=== PATIENT | female | born 1980 | race Caucasian/White ===

== ENCOUNTER 2017-05-02 01:25 | Emergency (ER) | payer BC ==
[2017-05-02 01:35] VITALS: BP 151/85
[2017-05-02] MEDS ORDERED: Ketorolac 60 MG/2 ML SDV IM ONE (02:19)
--- NOTE | 2017-05-02 02:21 | EDM.PDOC ---
ED HPI GENERAL MEDICAL PROBLEM - General Chief Complaint: Flank Pain Stated Complaint: BACK PAIN Time Seen by Provider: 05/02/17 02:17 - History of Present Illness INITIAL COMMENTS - FREE TEXT/NARRATIVE: HISTORY AND PHYSICAL: History of present illness: Patient 36-year-old female presents with concern of low back pain states this is bilateral G concern for possible urinary tract infection is been no numbness no weakness denies incontinence or retention of bowel or bladder no vaginal discharge or irregular bleeding or other concern Review of systems: As per history of present illness and below otherwise all systems reviewed and negative. Past medical history: As per history of present illness and as reviewed below otherwise noncontributory. Surgical history: As per history of present illness and as reviewed below otherwise noncontributory. Social history: No reported history of drug or alcohol abuse. Family history: As per history of present illness and as reviewed below otherwise noncontributory. Physical exam: HEENT: Atraumatic, normocephalic, pupils reactive, negative for conjunctival pallor or scleral icterus, mucous membranes moist, throat clear, neck supple, nontender, trachea midline. Lungs: Clear to auscultation, breath sounds equal bilaterally, chest nontender. Heart: S1S2, regular, negative for clicks, rubs, or JVD. Abdomen: Soft, nondistended, nontender. Negative for masses or hepatosplenomegaly. Negative for costovertebral tenderness. Pelvis: Stable nontender. Genitourinary: Deferred. Rectal: Deferred. Extremities: Atraumatic, negative for cords or calf pain. Neurovascular unremarkable. Neuro: Awake, alert, oriented. Cranial nerves II through XII unremarkable. Cerebellum unremarkable. Motor and sensory unremarkable throughout. Exam nonfocal. Back: Patient is some mild paravertebral tenderness at the lumbar spine no vertebral body tenderness patient is able [place] toes back reveals deep tendon reflexes are normal Diagnostics: [facility] Therapeutics: Toradol 60 mg IM Impression: #1 low back pain Definitive disposition and diagnosis as appropriate pending reevaluation and review of above. Bilateral Flank Pain Score (Numeric/FACES): 5 - Related Data Allergies Allergy/AdvReac Type Severity Reaction Status Date / Time No Known Allergies Allergy Verified 01/10/16 07:42 Home Meds: Home Meds l-Norgest/E.estradion-E.estrad [Seasonique 0.15-0.03-0.01] 1 each PO DAILY 03/29 [History] lamoTRIgine [LaMICtal] 400 mg PO DAILY 03/29/14 [History] Escitalopram [Lexapro] 20 mg PO DAILY 05/02/17 [History] atoMOXetine HCl [Strattera] 60 mg PO DAILY 05/02/17 [History] cloNIDine [Catapres] 0.1 mg PO DAILY 05/02/17 [History] Past Medical History - Past Health History Medical/Surgical History: Denies Medical/Surgical History HEENT History: Reports: Impaired Vision Cardiovascular History: Reports: None Respiratory History: Reports: None Genitourinary History: Reports: Renal Calculus, Other (See Below) Other Genitourinary History: kidney infections 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 Musculoskeletal History: Reports: None Neurological History: Reports: Headaches, Chronic Psychiatric History: Reports: Anxiety, Bipolar Endocrine/Metabolic History: Reports: None Hematologic History: Reports: None Immunologic History: Reports: None Dermatologic History: Reports: None - Infectious Disease History Infectious Disease History: Reports: Chicken Pox - Past Surgical History HEENT Surgical History: Reports: Eye Surgery, Other (See Below) Other HEENT Surgeries/Procedures: surgery for lazy eye as a baby Female Surgical History: Reports: Lithotripsy/ESWL Social & Family History - Family History Family Medical History: Noncontributory - Tobacco Use Smoking Status *Q: Never Smoker Years of Tobacco use: 1 Packs/Tins Daily: 0.5 Used Tobacco, but Quit: No Month Tobacco Last Used: January Second Hand Smoke Exposure: No - Caffeine Use Caffeine Use: Reports: Coffee - Alcohol Use Days Per Week of Alcohol Use: 0 - Recreational Drug Use Recreational Drug Use: No ED ROS GENERAL - Review of Systems Review Of Systems: ROS reveals no pertinent complaints other than HPI. ED EXAM, GENERAL - Physical Exam Exam: See Below (See dictation) Course - Vital Signs Last Recorded V/S: Last Vital Signs Temp 36.3 C 05/02/17 01:25 Pulse 88 05/02/17 01:25 Resp 16 05/02/17 01:25 BP 151/85 H 05/02/17 01:25 Pulse Ox 100 05/02/17 01:25 - Orders/Labs/Meds Labs: Laboratory Tests 05/02/17 05/02/17 Range/Units 01:35 01:35 Urine Color YELLOW Urine Appearance CLEAR Urine pH 6.5 (5.0-8.0) Ur Specific [place] 1.010 (1.001-1.035) Urine Protein NEGATIVE (NEGATIVE) mg/dL Urine Glucose (UA) NEGATIVE (NEGATIVE) mg/dL Urine Ketones NEGATIVE (NEGATIVE) mg/dL Urine Occult Blood NEGATIVE (NEGATIVE) Urine Nitrite NEGATIVE (NEGATIVE) Urine Bilirubin NEGATIVE (NEGATIVE) Urine Urobilinogen 0.2 (<2.0) EU/dL Ur Leukocyte Esterase NEGATIVE (NEGATIVE) Urine RBC 0-1 (0-2/HPF) Urine WBC 0-1 (0-5/HPF) Ur Epithelial Cells OCCASIONAL (NONE-FEW) Urine Bacteria RARE (NEGATIVE) Urine HCG, Qual NEGATIVE (NEGATIVE) Departure - Departure Time of Disposition: 02:20 Disposition: Home, Self-Care 01 Condition: Good Clinical Impression: Back pain - Discharge Information Referrals: Isha Zacarias SHE[employer] IR[employer]WORK[employer] [Primary Care Provider] - Additional Instructions: The following information is given to patients seen in the emergency department who are being discharged to home. This information is to outline your options for follow-up care. We provide all patients seen in our emergency department with a follow-up referral. The need for follow-up, as well as the timing and circumstances, are variable depending upon the specifics of your emergency department visit. If you don't have a primary care physician on staff, we will provide you with a referral. We always advise you to contact your personal physician following an emergency department visit to inform them of the circumstance of the visit and for follow-up with them and/or the need for any referrals to a consulting specialist. The emergency department will also refer you to a specialist when appropriate. This referral assures that you have the opportunity for followup care with a specialist. All of these measure are taken in an effort to provide you with optimal care, which includes your followup. Under all circumstances we always encourage you to contact your private physician who remains a resource for coordinating your care. When calling for followup care, please make the office aware that this follow-up is from your recent emergency room visit. If for any reason you are refused follow-up, please contact the [facility] emergency department at and asked to speak to the emergency department charge nurse. Motrin/Tylenol as directed follow-up primary medical doctor 1-2 days return as needed as discussed
== END 2017-05-02 03:00 | disposition home or self-care (01) ==
LOC: MW.ED 01:25
DX: M54.5 Low back pain (principal); F31.9 Bipolar disorder, unspecified; Z87.442 Personal history of urinary calculi; Z79.899 Other long term (current) drug therapy; Z98.890 Other specified postprocedural states
CPT/HCPCS: 81001; 81025; 96372; 99284; J1885; 99283

== ENCOUNTER 2018-01-01 09:31 | Emergency (ER) | payer BC ==
--- NOTE | 2018-01-01 10:03 | EDM.PDOC ---
ED HPI GENERAL MEDICAL PROBLEM - General Chief Complaint: Genitourinary Problem Stated Complaint: BACK PAIN AND BLOOD IN URINE Time Seen by Provider: 01/01/18 09:59 - History of Present Illness INITIAL COMMENTS - FREE TEXT/NARRATIVE: HISTORY AND PHYSICAL: History of present illness: Patient is a 37-year-old white female who presents with concern of hematuria and low back pain she denies fever chills nausea vomiting trauma or other concern. Review of systems: As per history of present illness and below otherwise all systems reviewed and negative. Past medical history: As per history of present illness and as reviewed below otherwise noncontributory. Surgical history: As per history of present illness and as reviewed below otherwise noncontributory. Social history: No reported history of drug or alcohol abuse. Family history: As per history of present illness and as reviewed below otherwise noncontributory. Physical exam: HEENT: Atraumatic, normocephalic, pupils reactive, negative for conjunctival pallor or scleral icterus, mucous membranes moist, throat clear, neck supple, nontender, trachea midline. Lungs: Clear to auscultation, breath sounds equal bilaterally, chest nontender. Heart: S1S2, regular, negative for clicks, rubs, or JVD. Abdomen: Soft, nondistended, nontender. Negative for masses or hepatosplenomegaly. Negative for costovertebral tenderness. Pelvis: Stable nontender. Genitourinary: Deferred. Rectal: Deferred. Extremities: Atraumatic, negative for cords or calf pain. Neurovascular unremarkable. Neuro: Awake, alert, oriented. Cranial nerves II through XII unremarkable. Cerebellum unremarkable. Motor and sensory unremarkable throughout. Exam nonfocal. Back: Patient has no vertebral body or point tenderness patient able stand on her toes back on her heels deep tendon reflexes are normal Diagnostics: UA urine culture and sensitivity and hCG Therapeutics: None Impression: #1 history of hematuria rule out UTI #2 low back Definitive disposition and diagnosis as appropriate pending reevaluation and review of above. Right Flank Pain Score (Numeric/FACES): 4 - Related Data Allergies Allergy/AdvReac Type Severity Reaction Status Date / Time No Known Allergies Allergy Verified 01/01/18 09:43 Home Meds: Home Meds l-Norgest/E.estradion-E.estrad [Seasonique 0.15-0.03-0.01] 1 each PO DAILY 03/29 [History] lamoTRIgine [LaMICtal] 400 mg PO DAILY 03/29/14 [History] Escitalopram [Lexapro] 20 mg PO DAILY 05/02/17 [History] atoMOXetine HCl [Strattera] 60 mg PO DAILY 05/02/17 [History] cloNIDine [Catapres] 0.1 mg PO DAILY 05/02/17 [History] Past Medical History - Past Health History Medical/Surgical History: Denies Medical/Surgical History HEENT History: Reports: Impaired Vision Cardiovascular History: Reports: None Respiratory History: Reports: None Genitourinary History: Reports: Renal Calculus, Other (See Below) Other Genitourinary History: kidney infections 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 Musculoskeletal History: Reports: None Neurological History: Reports: Headaches, Chronic Psychiatric History: Reports: Anxiety, Bipolar Endocrine/Metabolic History: Reports: None Hematologic History: Reports: None Immunologic History: Reports: None Dermatologic History: Reports: None - Infectious Disease History Infectious Disease History: Reports: Chicken Pox - Past Surgical History HEENT Surgical History: Reports: Eye Surgery, Other (See Below) Other HEENT Surgeries/Procedures: surgery for lazy eye as a baby GI Surgical History: Reports: Other (See Below) Female Surgical History: Reports: Lithotripsy/ESWL Social & Family History - Family History Family Medical History: Noncontributory - Tobacco Use Smoking Status *Q: Never Smoker Second Hand Smoke Exposure: No - Caffeine Use Caffeine Use: Reports: Coffee - Recreational Drug Use Recreational Drug Use: No ED ROS GENERAL - Review of Systems Review Of Systems: ROS reveals no pertinent complaints other than HPI. ED EXAM, GENERAL - Physical Exam Exam: See Below (See dictation) Course - Vital Signs Last Recorded V/S: Last Vital Signs Temp 36.4 C 01/01/18 09:43 Pulse 86 01/01/18 09:43 Resp 18 01/01/18 09:43 BP 144/76 H 01/01/18 09:43 Pulse Ox 99 01/01/18 09:43 - Orders/Labs/Meds Orders: Active Orders 24 hr Category Date Time Status CULTURE URINE [RM] Stat Lab 01/01/18 10:05 Received HCG QUALITATIVE,URINE [URCHEM] Stat Lab 01/01/18 10:05 Ordered UA W/MICROSCOPIC [URIN] Stat Lab 01/01/18 10:05 Ordered Labs: Laboratory Tests 01/01/18 01/01/18 Range/Units 10:05 10:05 Urine Color YELLOW Urine Appearance CLEAR Urine pH 6.5 (5.0-8.0) Ur Specific [place] 1.020 (1.001-1.035) Urine Protein NEGATIVE (NEGATIVE) mg/dL Urine Glucose (UA) NEGATIVE (NEGATIVE) mg/dL Urine Ketones NEGATIVE (NEGATIVE) mg/dL Urine Occult Blood NEGATIVE (NEGATIVE) Urine Nitrite NEGATIVE (NEGATIVE) Urine Bilirubin NEGATIVE (NEGATIVE) Urine Urobilinogen 0.2 (<2.0) EU/dL Ur Leukocyte Esterase NEGATIVE (NEGATIVE) Urine RBC NONE SEEN (0-2/HPF) Urine WBC 0-2 (0-5/HPF) Ur Epithelial Cells RARE (NONE-FEW) Amorphous Sediment NOT SEEN (NEGATIVE) Urine Bacteria NOT SEEN (NEGATIVE) Urine Mucus NOT SEEN (NONE-MOD) Urine HCG, Qual NEGATIVE (NEGATIVE) Departure - Departure Time of Disposition: 10:53 Disposition: Home, Self-Care 01 Condition: Good Clinical Impression: Encounter for medical screening examination - Discharge Information Referrals: PCP,None [Primary Care Provider] - Forms: ED Department Discharge Additional Instructions: The following information is given to patients seen in the emergency department who are being discharged to home. This information is to outline your options for follow-up care. We provide all patients seen in our emergency department with a follow-up referral. The need for follow-up, as well as the timing and circumstances, are variable depending upon the specifics of your emergency department visit. If you don't have a primary care physician on staff, we will provide you with a referral. We always advise you to contact your personal physician following an emergency department visit to inform them of the circumstance of the visit and for follow-up with them and/or the need for any referrals to a consulting specialist. The emergency department will also refer you to a specialist when appropriate. This referral assures that you have the opportunity for followup care with a specialist. All of these measure are taken in an effort to provide you with optimal care, which includes your followup. Under all circumstances we always encourage you to contact your private physician who remains a resource for coordinating your care. When calling for followup care, please make the office aware that this follow-up is from your recent emergency room visit. If for any reason you are refused follow-up, please contact the [facility] emergency department at and asked to speak to the emergency department charge nurse. Follow-up primary medical doctor call to schedule routine appointment return as needed as discussed - My Orders Last 24 Hours: My Active Orders 01/01/18 10:05 CULTURE URINE [RM] Stat HCG QUALITATIVE,URINE [URCHEM] Stat UA W/MICROSCOPIC [URIN] Stat - Assessment/Plan Last 24 Hours: My Active Orders 01/01/18 10:05 CULTURE URINE [RM] Stat HCG QUALITATIVE,URINE [URCHEM] Stat UA W/MICROSCOPIC [URIN] Stat
[2018-01-01 11:12] VITALS: BP 147/76
== END 2018-01-01 11:06 | disposition home or self-care (01) ==
LOC: MW.ED 09:31
DX: M54.5 Low back pain (principal); Z79.899 Other long term (current) drug therapy
CPT/HCPCS: 81001; 81025; 87086; 99282; 99283

== ENCOUNTER 2019-09-27 09:15 | Inpatient (IN) | payer BC ==
--- NOTE | 2019-09-27 09:49 | EDM.PDOC ---
ED HPI GENERAL MEDICAL PROBLEM - General Chief Complaint: Behavioral/Psych Stated Complaint: EMS/AMB Time Seen by Provider: 09/27/19 09:41 Source of Information: Reports: Patient - History of Present Illness INITIAL COMMENTS - FREE TEXT/NARRATIVE: She states that last night after an argument with her father, she took "a lot of pills". Pills ingested included clonidine, Xanax, and Lamictal. She is vague about quantities and simply says that she took a handful of what ever she could find. She complains of feeling lightheaded if she stands. She denies chest pain, shortness of breath or seizure-like activity. She said when she took the pill she definitely wanted to because she was tired of suffering. Additionally, she was brought here by police, who showed me a note the patient wrote. In this note, she gives away various possessions. He also says her goodbyes to people who apparently are important to her. She says she no longer feels quite like she did last night and does not really want to . She denies having tried to kill herself in the past. She states that she lives alone. Headache Pain Score (Numeric/FACES): 0 - Related Data Allergies Allergy/AdvReac Type Severity Reaction Status Date / Time No Known Allergies Allergy Verified 09/27/19 09:56 Home Meds: Home Meds l-Norgest/E.estradion-E.estrad [Seasonique 0.15-0.03-0.01] 1 each PO DAILY 03/29 [History] lamoTRIgine [LaMICtal] 200 mg PO BID 03/29/14 [History] Escitalopram [Lexapro] 20 mg PO DAILY 05/02/17 [History] atoMOXetine HCl [Strattera] 60 mg PO DAILY 05/02/17 [History] cloNIDine [Catapres] 0.1 mg PO DAILY 05/02/17 [History] Venlafaxine HCl [Venlafaxine HCl ER] 75 mg PO ASDIRECTED 09/27/19 [History] atoMOXetine HCl [Atomoxetine HCl] 60 mg PO ASDIRECTED 09/27/19 [History] atoMOXetine HCl [Strattera] 80 mg PO DAILY 09/27/19 [History] hydrOXYzine HCL [Atarax] 25 mg PO DAILY 09/27/19 [History] metroNIDAZOLE [Metronidazole] 500 mg PO ASDIRECTED 09/27/19 [History] Past Medical History - Past Health History Medical/Surgical History: Denies Medical/Surgical History HEENT History: Reports: Impaired Vision Cardiovascular History: Reports: None Respiratory History: Reports: None Genitourinary History: Reports: Renal Calculus, Other (See Below) Other Genitourinary History: kidney infections 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[employer]ER History: Reports: 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 Musculoskeletal History: Reports: None Neurological History: Reports: Headaches, Chronic Psychiatric History: Reports: Anxiety, Bipolar Endocrine/Metabolic History: Reports: None Hematologic History: Reports: None Immunologic History: Reports: None Dermatologic History: Reports: None - Infectious Disease History Infectious Disease History: Reports: Chicken Pox - Past Surgical History HEENT Surgical History: Reports: Eye Surgery, Other (See Below) Other HEENT Surgeries/Procedures: surgery for lazy eye as a baby GI Surgical History: Reports: Other (See Below) Female Surgical History: Reports: Lithotripsy/ESWL Social & Family History - Family History Family Medical History: Noncontributory - Caffeine Use Caffeine Use: Reports: Coffee ED ROS GENERAL - Review of Systems Review Of Systems: See Below Constitutional: Denies: Fever, Diaphoresis HEENT: Denies: Eye Pain Respiratory: Denies: Shortness of Breath, Wheezing, Cough Cardiovascular: Denies: Chest Pain, Edema GI/Abdominal: Denies: Abdominal Pain, Nausea, Vomiting Musculoskeletal: Denies: Muscle Pain Skin: Denies: Jaundice, Mottled Neurological: Reports: Dizziness Psychiatric: Reports: Suicidal Ideation. Denies: Hallucinations - Physical Exam Exam: See Below Text/Narrative:: General: alert, well appearing, no acute distress HEENT: Atraumatic, normocephalic, pupils reactive, negative for conjunctival pallor or scleral icterus, mucous membranes moist, throat clear, handling oral secretions well. Neck: supple, nontender, trachea midline. Lungs: Clear to auscultation, breath sounds equal bilaterally, chest nontender. Heart: S1S2, regular, negative for clicks, rubs, or JVD. His bradycardia at about 45 to 50 bpm on the monitor during exam. Brisk capillary refill. Abdomen: Soft, nondistended, nontender. Negative for masses or hepatosplenomegaly. Negative for costovertebral tenderness. Pelvis: Stable nontender. Skin: warm, dry, good turgor. Musculoskeletal: soft compartments. No edema. Extremities: Atraumatic, negative for cords or calf pain. Neurovascular unremarkable. Neuro: Awake, alert, oriented. Cranial nerves II through XII unremarkable. Cerebellum unremarkable. Motor and sensory unremarkable throughout. Exam nonfocal. Psychiatric: Tearful affect. Eye contact ranges from good to fair. Does not appear to be hallucinating. Normal rate, rhythm, volume, content of speech. EKG INTERPRETATION EKG Interpretation Comments: EK bpm normal sinus rhythm left axis deviation normal OH, QRS, QTc intervals; left anterior fascicular block present Course - Vital Signs Text/Narrative:: Labs BC: Mild leukocytosis (white count 11.53), there was unremarkable Chemistry: CMP unremarkable apart from glucose a little elevated at 122 Magnesium: 2.5 (elevated) AST and ALT: Unremarkable Urinalysis: Urinalysis: Negative Urine tox: Positive for benzodiazepines, cocaine, marijuana EtOH: Negative cxr: no pulm edema, no acute infiltrates 10:02am Poison control contacted. They would like for us to give Atropine; add on Mg, naloxone, AST, ALT, INR, 11:16am Poison control advised that clonidine can act for up to 24 hrs. May need repeat doses of atropine and naloxone. Hospitalist paged. Pt's HR now in the 70s; SBP has been 140s-170s since administration of meds. Pt alert with nl mentation. I cannot medically clear her for psych admit for almost 12 more hours. 12:05pm d/w Dr. Almonte. Accepts pt for admit to tele obs. Last Recorded V/S: Last Vital Signs Temp 97.9 F 09/27/19 16:00 Pulse 82 09/27/19 11:13 Resp 20 09/27/19 19:00 BP 182/95 H 09/27/19 19:00 Pulse Ox 97 09/27/19 19:00 - Orders/Labs/Meds Orders: Active Orders 24 hr Category Date Time Status Admission Status [Patient Status] [ADT] Stat ADT 09/27/19 12:12 Active Medication Orders Albuterol/Ipratropium (Duoneb 3.0-0.5 Mg/3 Ml) 3 ml NEB Q4HRRT PRN PRN Reason: Shortness Of Breath/wheezing Atropine Sulfate (Atropine 1 Mg/Ml) 0.5 mg IVPUSH ONETIME PRN PRN Reason: Bradycardia Lactated Ringer's (Ringers, Lactated) 1,000 mls @ 200 mls/hr IV ASDIRECTED LYLE Last Admin: 09/27/19 20:04 Dose: 200 mls/hr Infusion: 09/27/19 20:04 Dose: 200 mls/hr Admin: 09/27/19 15:25 Dose: 200 mls/hr Sodium Chloride ([place] Nasal [place]) 1 ml TENISHA Q2H PRN PRN Reason: Dryness Labs: Laboratory Tests 09/27/19 09/27/19 09/27/19 Range/Units 09:30 09:30 09:30 WBC (4.0-11.0) K/uL RBC (4.30-5.90) M/uL Hgb (12.0-16.0) g/dL Hct (36.0-46.0) % MCV (80.0-98.0) fL MCH (27.0-32.0) pg MCHC (31.0-37.0) g/dL RDW Std Deviation (28.0-62.0) fl RDW Coeff of Eros (11.0-15.0) % Plt Count (150-400) K/uL MPV (7.40-12.00) fL Neut % (Auto) (48.0-80.0) % Lymph % (Auto) (16.0-40.0) % [place]once % (Auto) (0.0-15.0) % Eos % (Auto) (0.0-7.0) % Baso % (Auto) (0.0-1.5) % Neut # (Auto) (1.4-5.7) K/uL Lymph # (Auto) (0.6-2.4) K/uL Ponce # (Auto) (0.0-0.8) K/uL Eos # (Auto) (0.0-0.7) K/uL Baso # (Auto) (0.0-0.1) K/uL Nucleated RBC % /100WBC Nucleated RBCs # K/uL Sodium 142 (136-145) mmol/L Potassium 4.3 (3.5-5.1) mmol/L Chloride 104 (98-107) mmol/L Carbon Dioxide 23.2 (21.0-32.0) mmol/L BUN 18 (7.0-18.0) mg/dL Creatinine 1.0 (0.6-1.0) mg/dL Est Cr Clr Drug Dosing TNP Estimated GFR (MDRD) > 60.0 ml/min Glucose 122 H (74-106) mg/dL Calcium 9.5 (8.5-10.1) mg/dL Magnesium (1.8-2.4) mg/dL Total Bilirubin 0.9 (0.2-1.0) mg/dL AST 18 (15-37) IU/L ALT 25 (14-63) IU/L Alkaline Phosphatase 94 (46-116) U/L Total Protein 8.3 H (6.4-8.2) g/dL Albumin 4.3 (3.4-5.0) g/dL Globulin 4.0 (2.6-4.0) g/dL Albumin/Globulin Ratio 1.1 (0.9-1.6) TSH 3rd Generation (0.36-3.74) uIU/mL Urine Color YELLOW Urine Appearance CLEAR Urine pH 6.0 (5.0-8.0) Ur Specific [place] 1.025 (1.001-1.035) Urine Protein NEGATIVE (NEGATIVE) mg/dL Urine Glucose (UA) NEGATIVE (NEGATIVE) mg/dL Urine Ketones NEGATIVE (NEGATIVE) mg/dL Urine Occult Blood NEGATIVE (NEGATIVE) Urine Nitrite NEGATIVE (NEGATIVE) Urine Bilirubin NEGATIVE (NEGATIVE) Urine Urobilinogen 0.2 (<2.0) EU/dL Ur Leukocyte Esterase NEGATIVE (NEGATIVE) Urine HCG, Qual NEGATIVE (NEGATIVE) Salicylates 0.4 (0-20) mg/dL Urine Opiates Screen (NEGATIVE) Ur Oxycodone Screen (NEGATIVE) Urine Methadone Screen (NEGATIVE) Acetaminophen <2.0 ug/mL Ur Barbiturates Screen (NEGATIVE) Ur Phencyclidine Scrn (NEGATIVE) Ur Amphetamine Screen (NEGATIVE) U Methamphetamines Scrn (NEGATIVE) U Benzodiazepines Scrn (NEGATIVE) U Cocaine Metab Screen (NEGATIVE) U Marijuana (THC) Screen (NEGATIVE) Ethyl Alcohol <3 mg/dL 09/27/19 09/27/19 09/27/19 Range/Units 09:30 09:30 09:30 WBC 11.53 H (4.0-11.0) K/uL RBC 5.27 (4.30-5.90) M/uL Hgb 15.7 (12.0-16.0) g/dL Hct 45.7 (36.0-46.0) % MCV 86.7 (80.0-98.0) fL MCH 29.8 (27.0-32.0) pg MCHC 34.4 (31.0-37.0) g/dL RDW Std Deviation 41.8 (28.0-62.0) fl RDW Coeff of Eros 13 (11.0-15.0) % Plt Count 368 (150-400) K/uL MPV 9.90 (7.40-12.00) fL Neut % (Auto) 65.7 (48.0-80.0) % Lymph % (Auto) 21.0 (16.0-40.0) % Ponce % (Auto) 10.1 (0.0-15.0) % Eos % (Auto) 2.6 (0.0-7.0) % Baso % (Auto) 0.6 (0.0-1.5) % Neut # (Auto) 7.6 H (1.4-5.7) K/uL Lymph # (Auto) 2.4 (0.6-2.4) K/uL Ponce # (Auto) 1.2 H (0.0-0.8) K/uL Eos # (Auto) 0.3 (0.0-0.7) K/uL Baso # (Auto) 0.1 (0.0-0.1) K/uL Nucleated RBC % 0.0 /100WBC Nucleated RBCs # 0 K/uL Sodium (136-145) mmol/L Potassium (3.5-5.1) mmol/L Chloride (98-107) mmol/L Carbon Dioxide (21.0-32.0) mmol/L BUN (7.0-18.0) mg/dL Creatinine (0.6-1.0) mg/dL Est Cr Clr Drug Dosing Estimated GFR (MDRD) ml/min Glucose (74-106) mg/dL Calcium (8.5-10.1) mg/dL Magnesium 2.5 H (1.8-2.4) mg/dL Total Bilirubin (0.2-1.0) mg/dL AST (15-37) IU/L ALT (14-63) IU/L Alkaline Phosphatase (46-116) U/L Total Protein (6.4-8.2) g/dL Albumin (3.4-5.0) g/dL Globulin (2.6-4.0) g/dL Albumin/Globulin Ratio (0.9-1.6) TSH 3rd Generation (0.36-3.74) uIU/mL Urine Color Urine Appearance Urine pH (5.0-8.0) Ur Specific [place] (1.001-1.035) Urine Protein (NEGATIVE) mg/dL Urine Glucose (UA) (NEGATIVE) mg/dL Urine Ketones (NEGATIVE) mg/dL Urine Occult Blood (NEGATIVE) Urine Nitrite (NEGATIVE) Urine Bilirubin (NEGATIVE) Urine Urobilinogen (<2.0) EU/dL Ur Leukocyte Esterase (NEGATIVE) Urine HCG, Qual (NEGATIVE) Salicylates (0-20) mg/dL Urine Opiates Screen NEGATIVE (NEGATIVE) Ur Oxycodone Screen NEGATIVE (NEGATIVE) Urine Methadone Screen NEGATIVE (NEGATIVE) Acetaminophen ug/mL Ur Barbiturates Screen NEGATIVE (NEGATIVE) Ur Phencyclidine Scrn NEGATIVE (NEGATIVE) Ur Amphetamine Screen NEGATIVE (NEGATIVE) U Methamphetamines Scrn NEGATIVE (NEGATIVE) U Benzodiazepines Scrn POSITIVE (NEGATIVE) U Cocaine Metab Screen POSITIVE (NEGATIVE) U Marijuana (THC) Screen POSITIVE (NEGATIVE) Ethyl Alcohol mg/dL 09/27/19 09/27/19 Range/Units 09:30 09:30 WBC (4.0-11.0) K/uL RBC (4.30-5.90) M/uL Hgb (12.0-16.0) g/dL Hct (36.0-46.0) % MCV (80.0-98.0) fL MCH (27.0-32.0) pg MCHC (31.0-37.0) g/dL RDW Std Deviation (28.0-62.0) fl RDW Coeff of Eros (11.0-15.0) % Plt Count (150-400) K/uL MPV (7.40-12.00) fL Neut % (Auto) (48.0-80.0) % Lymph % (Auto) (16.0-40.0) % Ponce % (Auto) (0.0-15.0) % Eos % (Auto) (0.0-7.0) % Baso % (Auto) (0.0-1.5) % Neut # (Auto) (1.4-5.7) K/uL Lymph # (Auto) (0.6-2.4) K/uL Ponce # (Auto) (0.0-0.8) K/uL Eos # (Auto) (0.0-0.7) K/uL Baso # (Auto) (0.0-0.1) K/uL Nucleated RBC % /100WBC Nucleated RBCs # K/uL Sodium (136-145) mmol/L Potassium (3.5-5.1) mmol/L Chloride (98-107) mmol/L Carbon Dioxide (21.0-32.0) mmol/L BUN (7.0-18.0) mg/dL Creatinine (0.6-1.0) mg/dL Est Cr Clr Drug Dosing Estimated GFR (MDRD) ml/min Glucose (74-106) mg/dL Calcium (8.5-10.1) mg/dL Magnesium (1.8-2.4) mg/dL Total Bilirubin (0.2-1.0) mg/dL AST 16 (15-37) IU/L ALT 24 (14-63) IU/L Alkaline Phosphatase (46-116) U/L Total Protein (6.4-8.2) g/dL Albumin (3.4-5.0) g/dL Globulin (2.6-4.0) g/dL Albumin/Globulin Ratio (0.9-1.6) TSH 3rd Generation 1.38 (0.36-3.74) uIU/mL Urine Color Urine Appearance Urine pH (5.0-8.0) Ur Specific [place] (1.001-1.035) Urine Protein (NEGATIVE) mg/dL Urine Glucose (UA) (NEGATIVE) mg/dL Urine Ketones (NEGATIVE) mg/dL Urine Occult Blood (NEGATIVE) Urine Nitrite (NEGATIVE) Urine Bilirubin (NEGATIVE) Urine Urobilinogen (<2.0) EU/dL Ur Leukocyte Esterase (NEGATIVE) Urine HCG, Qual (NEGATIVE) Salicylates (0-20) mg/dL Urine Opiates Screen (NEGATIVE) Ur Oxycodone Screen (NEGATIVE) Urine Methadone Screen (NEGATIVE) Acetaminophen ug/mL Ur Barbiturates Screen (NEGATIVE) Ur Phencyclidine Scrn (NEGATIVE) Ur Amphetamine Screen (NEGATIVE) U Methamphetamines Scrn (NEGATIVE) U Benzodiazepines Scrn (NEGATIVE) U Cocaine Metab Screen (NEGATIVE) U Marijuana (THC) Screen (NEGATIVE) Ethyl Alcohol mg/dL Meds: Medications Generic Name Dose Route Start Last Admin Trade Name Freq PRN Reason Stop Dose Admin Albuterol/Ipratropium 3 ml 09/27/19 14:10 Duoneb 3.0-0.5 Mg/3 Ml NEB Q4HRRT PRN Shortness Of Breath/wheezing Atropine Sulfate 0.5 mg 09/27/19 14:16 Atropine 1 Mg/Ml IVPUSH ONETIME PRN Bradycardia Lactated Ringer's 1,000 mls @ 200 mls/hr 09/27/19 15:14 09/27/19 20:04 Ringers, Lactated IV 200 mls/hr ASDIRECTED LYLE Administration Sodium Chloride 1 ml 09/27/19 14:07 [place] Nasal [place] TENISHA Q2H PRN Dryness Discontinued Medications Generic Name Dose Route Start Last Admin Trade Name Dee PRN Reason Stop Dose Admin Atropine Sulfate 0.5 mg 09/27/19 10:08 09/27/19 10:23 Atropine 0.1 Mg/Ml IVPUSH 09/27/19 10:09 0.5 mg ONETIME ONE Administration Atropine Sulfate 0.5 mg 09/27/19 14:13 09/27/19 14:35 Atropine 0.1 Mg/Ml IVPUSH 0.5 mg ONETIME PRN Administration Bradycardia Atropine Sulfate 0.5 mg 09/27/19 18:01 09/27/19 17:45 Atropine 0.1 Mg/Ml IVPUSH 09/27/19 18:02 0.5 mg ONETIME ONE Administration Lactated Ringer's 1,000 mls @ 999 mls/hr 09/27/19 14:14 09/27/19 14:33 Ringers, Lactated IV 09/27/19 15:14 999 mls/hr .BOLUS ONE Administration Naloxone HCl 0.4 mg 09/27/19 10:08 09/27/19 10:24 Narcan IVPUSH 09/27/19 10:09 0.4 mg ONETIME ONE Administration Departure - Departure Time of Disposition: 12:05 Disposition: Admitted As Inpatient 66 Condition: Good Clinical Impression: Depressive disorder, Self-harm - Discharge Information Sepsis Event Note - Focused Exam Vital Signs: Vital Signs Temp Pulse Resp BP Pulse Ox 09/27/19 11:13 82 16 173/90 H 97 09/27/19 10:30 88 16 98 09/27/19 10:24 38 L 12 145/84 H 96 09/27/19 10:00 96.6 F L 39 L 16 137/96 H 96 Date Exam was Performed: 09/27/19 Time Exam was Performed: 21:07 - My Orders Last 24 Hours: My Active Orders 09/27/19 12:12 Admission Status [Patient Status] [ADT] Stat - Assessment/Plan Last 24 Hours: My Active Orders 09/27/19 12:12 Admission Status [Patient Status] [ADT] Stat
[2019-09-27] MEDS ORDERED: Atropine 0.1 MG/ML 10 ML Syringe IVPUSH ONE ×2 (10:08→18:01)
[2019-09-27] MEDS ORDERED: Naloxone 0.4 MG/ML Syringe IVPUSH ONE (10:08)
[2019-09-27 10:10] LABS: ACETAMINOPHEN <2.0 ug/mL; BLOOD UREA NITROGEN,BUN 18 mg/dL (7.0-18.0); CARBON DIOXIDE,CO2 23.2 mmol/L (21.0-32.0); CHLORIDE,CL 104 mmol/L (98-107); GLUCOSE RANDOM 122 mg/dL (74-106); POTASSIUM,K 4.3 mmol/L (3.5-5.1); SODIUM,NA 142 mmol/L (136-145)
--- NOTE | 2019-09-27 12:03 | CR ---
Chest: Portable view of the chest was obtained. Comparison: Prior chest x-ray of 06/23/14. Heart size and mediastinum are normal. Lungs are clear with no acute parenchymal change. Bony structures are grossly intact. Impression: 1. Nothing acute is seen on portable chest x-ray. Diagnostic code #1 This report was dictated in [place] Standard Time
--- NOTE | 2019-09-27 13:46 | PCM.HP.2 ---
H&P History of Present Illness - General Date of Service: 09/27/19 Admit Problem/Dx: Admission Diagnosis/Problem Admission Diagnosis/Problem Overdose of illicit drug - History of Present Illness Initial Comments - Free Text/Narative: Patient is a 39 y/o F, who came in via EMS after intentional drug overdose. Patient states that last night she had an argument with her dad and she took "almost 50 pills" of medications and went to sleep with an intent not to wake up.. Pills ingested included clonidine, Xanax, and possible Lamictal. Patient states this AM she woke up and realized what she had done and told her mom immediately who called EMS. Patient is tearful, but sometimes cheerful at the same time. Mood seems to be labile. Patient complains of feeling lightheaded if she stands. Patient denies chest pain, shortness of breath or seizure-like activity. She said when she took the pill she definitely wanted to because she was tired of suffering. Additionally, she was brought here by police, police had note that patient wrote note prior to taking her pills. In this note, she gives away various possessions, and says her goodbyes to people who apparently are important to her. Currently patient is not actively suicidal and does not really want to . She denies having tried to kill herself in the past but states last 6 years of her life have been quite stressful. In ER patient was found to be bradycardic, BP was stable. Poison control was contacted, received atropine and Narcan. Rest of toxicology showed positive cocaine, benzo and marijuana. Slight Leucocytosis.,CXR unremarkable. Admitted to ICU for further management. - Related Data Allergies/Adverse Reactions: Allergies Allergy/AdvReac Type Severity Reaction Status Date / Time No Known Allergies Allergy Verified 09/27/19 09:56 Home Medications: Home Meds l-Norgest/E.estradion-E.estrad [Seasonique 0.15-0.03-0.01] 1 each PO DAILY 03/29 [History] lamoTRIgine [LaMICtal] 200 mg PO BID 03/29/14 [History] Escitalopram [Lexapro] 20 mg PO DAILY 05/02/17 [History] atoMOXetine HCl [Strattera] 60 mg PO DAILY 05/02/17 [History] cloNIDine [Catapres] 0.1 mg PO DAILY 05/02/17 [History] Venlafaxine HCl [Venlafaxine HCl ER] 75 mg PO ASDIRECTED 09/27/19 [History] atoMOXetine HCl [Atomoxetine HCl] 60 mg PO ASDIRECTED 09/27/19 [History] atoMOXetine HCl [Strattera] 80 mg PO DAILY 09/27/19 [History] hydrOXYzine HCL [Atarax] 25 mg PO DAILY 09/27/19 [History] metroNIDAZOLE [Metronidazole] 500 mg PO ASDIRECTED 09/27/19 [History] Past Medical History - Past Health History Medical/Surgical History: Denies Medical/Surgical History HEENT History: Reports: Impaired Vision Cardiovascular History: Reports: None Respiratory History: Reports: None Genitourinary History: Reports: Renal Calculus, Other (See Below) Other Genitourinary History: kidney infections 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: 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 Musculoskeletal History: Reports: None Neurological History: Reports: Headaches, Chronic Psychiatric History: Reports: Anxiety, Bipolar Endocrine/Metabolic History: Reports: None Hematologic History: Reports: None Immunologic History: Reports: None Dermatologic History: Reports: None - Infectious Disease History Infectious Disease History: Reports: Chicken Pox - Past Surgical History HEENT Surgical History: Reports: Eye Surgery, Other (See Below) Other HEENT Surgeries/Procedures: surgery for lazy eye as a baby GI Surgical History: Reports: Other (See Below) Female Surgical History: Reports: Lithotripsy/ESWL Social & Family History - Family History Family Medical History: Noncontributory - Tobacco Use Smoking Status *Q: Unknown Ever Smoked Second Hand Smoke Exposure: No - Caffeine Use Caffeine Use: Reports: Coffee - Recreational Drug Use Recreational Drug Use: Yes Recreational Drug Type: Reports: Marijuana/Hashish H&P Review of Systems - Review of Systems: Review Of Systems: See Below General: Denies: Fever, Chills HEENT: Denies: Dysphasia, Ear Pain Pulmonary: Denies: Shortness of Breath, Wheezing Cardiovascular: Reports: Lightheadedness. Denies: Chest Pain, Palpitations, Dyspnea on Exertion, Syncope Gastrointestinal: Denies: Abdominal Pain, Black Stool, Decreased Appetite Genitourinary: Denies: Dysuria, Frequency, Burning Musculoskeletal: Denies: Neck Pain, Shoulder Pain, Arm Pain Skin: Denies: Cyanosis, Jaundice, Mottled Psychiatric: Reports: Depression, Mood Lability. Denies: Confusion, Hallucinations, Suicidal Ideation, Homicidal Ideation Neurological: Reports: Dizziness. Denies: Confusion, Headache Exam - Exam Exam: See Below - Vital Signs Vital Signs: Last Vital Signs Temp 35.9 C L 09/27/19 10:00 Pulse 82 09/27/19 11:13 Resp 16 09/27/19 11:13 BP 173/90 H 09/27/19 11:13 Pulse Ox 97 09/27/19 11:13 Weight: 90.718 kg - Exam Quality Assessment: Supplemental Oxygen General: Alert, Oriented, Cooperative, Mild Distress HEENT: Conjunctiva Clear Neck: Supple, Trachea Midline Lungs: Clear to Auscultation, Normal Respiratory Effort Cardiovascular: Regular Rate, Regular Rhythm, Normal S1, Normal S2 GI/Abdominal Exam: Normal Bowel Sounds, Soft, Non-Tender Neuro Extensive - Mental Status: Alert, Oriented x3. No: Normal Mood/Affect - Patient Data Lab Results Last 24 hrs: Laboratory Results - last 24 hr 09/27/19 09/27/19 09/27/19 Range/Units 09:30 09:30 09:30 WBC (4.0-11.0) K/uL RBC (4.30-5.90) M/uL Hgb (12.0-16.0) g/dL Hct (36.0-46.0) % MCV (80.0-98.0) fL MCH (27.0-32.0) pg MCHC (31.0-37.0) g/dL RDW Std Deviation (28.0-62.0) fl RDW Coeff of Eros (11.0-15.0) % Plt Count (150-400) K/uL MPV (7.40-12.00) fL Neut % (Auto) (48.0-80.0) % Lymph % (Auto) (16.0-40.0) % Lee % (Auto) (0.0-15.0) % Eos % (Auto) (0.0-7.0) % Baso % (Auto) (0.0-1.5) % Neut # (Auto) (1.4-5.7) K/uL Lymph # (Auto) (0.6-2.4) K/uL Lee # (Auto) (0.0-0.8) K/uL Eos # (Auto) (0.0-0.7) K/uL Baso # (Auto) (0.0-0.1) K/uL Nucleated RBC % /100WBC Nucleated RBCs # K/uL Sodium 142 (136-145) mmol/L Potassium 4.3 (3.5-5.1) mmol/L Chloride 104 (98-107) mmol/L Carbon Dioxide 23.2 (21.0-32.0) mmol/L BUN 18 (7.0-18.0) mg/dL Creatinine 1.0 (0.6-1.0) mg/dL Est Cr Clr Drug Dosing TNP Estimated GFR (MDRD) > 60.0 ml/min Glucose 122 H (74-106) mg/dL Calcium 9.5 (8.5-10.1) mg/dL Magnesium (1.8-2.4) mg/dL Total Bilirubin 0.9 (0.2-1.0) mg/dL AST 18 (15-37) IU/L ALT 25 (14-63) IU/L Alkaline Phosphatase 94 (46-116) U/L Total Protein 8.3 H (6.4-8.2) g/dL Albumin 4.3 (3.4-5.0) g/dL Globulin 4.0 (2.6-4.0) g/dL Albumin/Globulin Ratio 1.1 (0.9-1.6) Urine Color YELLOW Urine Appearance CLEAR Urine pH 6.0 (5.0-8.0) Ur Specific [place] 1.025 (1.001-1.035) Urine Protein NEGATIVE (NEGATIVE) mg/dL Urine Glucose (UA) NEGATIVE (NEGATIVE) mg/dL Urine Ketones NEGATIVE (NEGATIVE) mg/dL Urine Occult Blood NEGATIVE (NEGATIVE) Urine Nitrite NEGATIVE (NEGATIVE) Urine Bilirubin NEGATIVE (NEGATIVE) Urine Urobilinogen 0.2 (<2.0) EU/dL Ur Leukocyte Esterase NEGATIVE (NEGATIVE) Urine HCG, Qual NEGATIVE (NEGATIVE) Salicylates 0.4 (0-20) mg/dL Urine Opiates Screen (NEGATIVE) Ur Oxycodone Screen (NEGATIVE) Urine Methadone Screen (NEGATIVE) Acetaminophen <2.0 ug/mL Ur Barbiturates Screen (NEGATIVE) Ur Phencyclidine Scrn (NEGATIVE) Ur Amphetamine Screen (NEGATIVE) U Methamphetamines Scrn (NEGATIVE) U Benzodiazepines Scrn (NEGATIVE) U Cocaine Metab Screen (NEGATIVE) U Marijuana (THC) Screen (NEGATIVE) Ethyl Alcohol <3 mg/dL 09/27/19 09/27/19 09/27/19 Range/Units 09:30 09:30 09:30 WBC 11.53 H (4.0-11.0) K/uL RBC 5.27 (4.30-5.90) M/uL Hgb 15.7 (12.0-16.0) g/dL Hct 45.7 (36.0-46.0) % MCV 86.7 (80.0-98.0) fL MCH 29.8 (27.0-32.0) pg MCHC 34.4 (31.0-37.0) g/dL RDW Std Deviation 41.8 (28.0-62.0) fl RDW Coeff of Eros 13 (11.0-15.0) % Plt Count 368 (150-400) K/uL MPV 9.90 (7.40-12.00) fL Neut % (Auto) 65.7 (48.0-80.0) % Lymph % (Auto) 21.0 (16.0-40.0) % Lee % (Auto) 10.1 (0.0-15.0) % Eos % (Auto) 2.6 (0.0-7.0) % Baso % (Auto) 0.6 (0.0-1.5) % Neut # (Auto) 7.6 H (1.4-5.7) K/uL Lymph # (Auto) 2.4 (0.6-2.4) K/uL Lee # (Auto) 1.2 H (0.0-0.8) K/uL Eos # (Auto) 0.3 (0.0-0.7) K/uL Baso # (Auto) 0.1 (0.0-0.1) K/uL Nucleated RBC % 0.0 /100WBC Nucleated RBCs # 0 K/uL Sodium (136-145) mmol/L Potassium (3.5-5.1) mmol/L Chloride (98-107) mmol/L Carbon Dioxide (21.0-32.0) mmol/L BUN (7.0-18.0) mg/dL Creatinine (0.6-1.0) mg/dL Est Cr Clr Drug Dosing Estimated GFR (MDRD) ml/min Glucose (74-106) mg/dL Calcium (8.5-10.1) mg/dL Magnesium 2.5 H (1.8-2.4) mg/dL Total Bilirubin (0.2-1.0) mg/dL AST (15-37) IU/L ALT (14-63) IU/L Alkaline Phosphatase (46-116) U/L Total Protein (6.4-8.2) g/dL Albumin (3.4-5.0) g/dL Globulin (2.6-4.0) g/dL Albumin/Globulin Ratio (0.9-1.6) Urine Color Urine Appearance Urine pH (5.0-8.0) Ur Specific [place] (1.001-1.035) Urine Protein (NEGATIVE) mg/dL Urine Glucose (UA) (NEGATIVE) mg/dL Urine Ketones (NEGATIVE) mg/dL Urine Occult Blood (NEGATIVE) Urine Nitrite (NEGATIVE) Urine Bilirubin (NEGATIVE) Urine Urobilinogen (<2.0) EU/dL Ur Leukocyte Esterase (NEGATIVE) Urine HCG, Qual (NEGATIVE) Salicylates (0-20) mg/dL Urine Opiates Screen NEGATIVE (NEGATIVE) Ur Oxycodone Screen NEGATIVE (NEGATIVE) Urine Methadone Screen NEGATIVE (NEGATIVE) Acetaminophen ug/mL Ur Barbiturates Screen NEGATIVE (NEGATIVE) Ur Phencyclidine Scrn NEGATIVE (NEGATIVE) Ur Amphetamine Screen NEGATIVE (NEGATIVE) U Methamphetamines Scrn NEGATIVE (NEGATIVE) U Benzodiazepines Scrn POSITIVE (NEGATIVE) U Cocaine Metab Screen POSITIVE (NEGATIVE) U Marijuana (THC) Screen POSITIVE (NEGATIVE) Ethyl Alcohol mg/dL 09/27/19 Range/Units 09:30 WBC (4.0-11.0) K/uL RBC (4.30-5.90) M/uL Hgb (12.0-16.0) g/dL Hct (36.0-46.0) % MCV (80.0-98.0) fL MCH (27.0-32.0) pg MCHC (31.0-37.0) g/dL RDW Std Deviation (28.0-62.0) fl RDW Coeff of Eros (11.0-15.0) % Plt Count (150-400) K/uL MPV (7.40-12.00) fL Neut % (Auto) (48.0-80.0) % Lymph % (Auto) (16.0-40.0) % Lee % (Auto) (0.0-15.0) % Eos % (Auto) (0.0-7.0) % Baso % (Auto) (0.0-1.5) % Neut # (Auto) (1.4-5.7) K/uL Lymph # (Auto) (0.6-2.4) K/uL Lee # (Auto) (0.0-0.8) K/uL Eos # (Auto) (0.0-0.7) K/uL Baso # (Auto) (0.0-0.1) K/uL Nucleated RBC % /100WBC Nucleated RBCs # K/uL Sodium (136-145) mmol/L Potassium (3.5-5.1) mmol/L Chloride (98-107) mmol/L Carbon Dioxide (21.0-32.0) mmol/L BUN (7.0-18.0) mg/dL Creatinine (0.6-1.0) mg/dL Est Cr Clr Drug Dosing Estimated GFR (MDRD) ml/min Glucose (74-106) mg/dL Calcium (8.5-10.1) mg/dL Magnesium (1.8-2.4) mg/dL Total Bilirubin (0.2-1.0) mg/dL AST 16 (15-37) IU/L ALT 24 (14-63) IU/L Alkaline Phosphatase (46-116) U/L Total Protein (6.4-8.2) g/dL Albumin (3.4-5.0) g/dL Globulin (2.6-4.0) g/dL Albumin/Globulin Ratio (0.9-1.6) Urine Color Urine Appearance Urine pH (5.0-8.0) Ur Specific [place] (1.001-1.035) Urine Protein (NEGATIVE) mg/dL Urine Glucose (UA) (NEGATIVE) mg/dL Urine Ketones (NEGATIVE) mg/dL Urine Occult Blood (NEGATIVE) Urine Nitrite (NEGATIVE) Urine Bilirubin (NEGATIVE) Urine Urobilinogen (<2.0) EU/dL Ur Leukocyte Esterase (NEGATIVE) Urine HCG, Qual (NEGATIVE) Salicylates (0-20) mg/dL Urine Opiates Screen (NEGATIVE) Ur Oxycodone Screen (NEGATIVE) Urine Methadone Screen (NEGATIVE) Acetaminophen ug/mL Ur Barbiturates Screen (NEGATIVE) Ur Phencyclidine Scrn (NEGATIVE) Ur Amphetamine Screen (NEGATIVE) U Methamphetamines Scrn (NEGATIVE) U Benzodiazepines Scrn (NEGATIVE) U Cocaine Metab Screen (NEGATIVE) U Marijuana (THC) Screen (NEGATIVE) Ethyl Alcohol mg/dL Result Diagrams: 09/27/19 09:30 09/27/19 09:30 Sepsis Event Note - Evaluation Sepsis Screening Result: No Definite Risk - Focused Exam Vital Signs: Vital Signs Temp Pulse Resp BP Pulse Ox 09/27/19 11:13 82 16 173/90 H 97 09/27/19 10:30 88 16 98 09/27/19 10:24 38 L 12 145/84 H 96 09/27/19 10:00 35.9 C L 39 L 16 137/96 H 96 Date Exam was Performed: 09/27/19 Time Exam was Performed: 15:11 - Problem List (1) Drug overdose, intentional SNOMED Code(s): 12572185 ICD Code: T50.902A - POISONING BY UNSP DRUG/MEDS/BIOL SUBST, SELF-HARM, INIT Status: Acute Current Visit: Yes (2) Bradycardia SNOMED Code(s): 63984681 ICD Code: R00.1 - BRADYCARDIA, UNSPECIFIED Status: Acute Current Visit: Yes (3) Clonidine overdose SNOMED Code(s): 003387429 ICD Code: T46.5X1A - POISONING BY OTH ANTIHYPERTN DRUGS, ACCIDENTAL, INIT Status: Acute Current Visit: Yes Problem List Initiated/Reviewed/Updated: Yes Orders Last 24hrs: Active Orders 24 hr Category Date Time Status Admission Status [Patient Status] [ADT] Stat ADT 09/27/19 12:12 Active EKG Documentation Completion [RC] STAT Care 09/27/19 09:29 Active Assessment/Plan Comment:: 39 y/o F admitted for intentional clonidine overdose Patient currently denied SI, but did take Meds with intention to kill herself Received atropine and Narcan HR fluctuates between 30s to 70s, BP soft in low 100s SBP Will start IVF LR fluid bolus and maintenance fluid thereafter cont to monitor her HR closely, may received another dose of atropine if needed , If persistent arash and low BP may need to start Dopamine Will cont to monitor closely suicide precautions initiated
[2019-09-27] MEDS ORDERED: Albuterol/Ipratropium 3.0-0.5 MG/3 ML Neb Soln NEB PRN (14:10)
[2019-09-27] MEDS ORDERED: Lactated Ringers 1,000 ML IV ONE (14:14)
[2019-09-27] MEDS ORDERED: Lactated Ringers 1,000 ML IV SCH (14:15)
[2019-09-27] MEDS ORDERED: Atropine 1 MG/ML SDV IVPUSH PRN (14:16)
[2019-09-27] MEDS: Atropine 0.1 MG/ML 10 ML Syringe IVPUSH PRN (14:35)
--- NOTE | 2019-09-27 15:17 | PN ---
THC Physician - Brief Progress JeziLCGDPPETU70/15/2020 14:54[facility] Curtis Cristobal, NAHOMY - [facility] - [place] EARLE JAMESONDate of Service 09/27/2019 14:54HPI/Events of Note eICU admission [id number] female with past medical history of bipolar disorder, anxiety , endometriosis who presented to the hospital after intentional drug overdose. Patient had an argume nt with her father and subsequently took multiple pills/uknown quantity (states "50 pills") and went to sleep (intention of not waking up). Pills included clonidine, Xanax and Lamictal. Patient awoke this morning and realized what she had done and EMS was called by her mother. Of note, patient did w rite a letter prior to this ingestion stating her goodbyes and giving away her possessions. In the E D patient was noted to be bradycardic to the 30s and blood pressure in the systolic 100s range. Pois on control was called and patient was given atropine and Narcan with good response. U tox also showe d cocaine, benzos and cannabinoids. Patient went the ICU for further monitoring.Patient laying in be d, sleeping, no acute distress. on room air. Vitals reviewed about 10 min. BP 177/96 than 167/86. HR 70's throughout Labs/EMR/Imaging reviewedIntentional drug overdose- Overdosed on Clonidine/Xanax/Lami ctal. - Poison control consulted/following. - Bradycardia/Hypotension likley due to clonidine. Atropi ne at bedside. Agree if persistently bradycardic start Dopamine. Patient hemodynamically stable roshan butler. - Avoid any sedative medications, if agitated recommend Haldol (please check QTc prior to givin g). Avoid precedex for now given bradycardia. - Do not recommend giving flumazenil. - Recommend Psych consult. currently denying suicidal ideation, but will need to be considered for inpatient psych. - Recommend ET CO2 monitoring, if patient remains somnolent. - Suicide precautions. Will need sitter at bedside. DVT prophy- Recommend SCD'sGI prophy- recommend pepcidInterventions Major-Change in mental status - evaluation and management, Other: Intentional overdose
[2019-09-27] MEDS: Lactated Ringers 1,000 ML IV SCH ×2 (15:25→20:04)
[2019-09-27] MEDS: Sodium Chloride 0.65% Nasal Spray 45 ML Bottle NAS PRN (21:22)
[2019-09-27] MEDS: Acetaminophen 325 MG Tab PO PRN (22:02)
[2019-09-28] MEDS: Sodium Chloride 0.65% Nasal Spray 45 ML Bottle NAS PRN ×4 (00:35→22:33)
[2019-09-28] MEDS: Atropine 0.1 MG/ML 10 ML Syringe IVPUSH PRN (00:35)
[2019-09-28] MEDS ORDERED: Atropine 0.1 MG/ML 10 ML Syringe IVPUSH PRN (00:42)
[2019-09-28] MEDS: Lactated Ringers 1,000 ML IV SCH ×5 (01:02→22:30)
[2019-09-28 07:03] LABS: BLOOD UREA NITROGEN,BUN 10 mg/dL (7.0-18.0); CHLORIDE,CL 109 mmol/L (98-107); GLUCOSE RANDOM 133 mg/dL (74-106); POTASSIUM,K 4.3 mmol/L (3.5-5.1); SODIUM,NA 145 mmol/L (136-145)
--- NOTE | 2019-09-28 10:52 | PCM.PN ---
- Patient Data Vitals - Most Recent: Last Vital Signs Temp 35.8 C L 09/28/19 08:00 Pulse 82 09/27/19 11:13 Resp 10 L 09/28/19 10:00 BP 90/71 09/28/19 10:00 Pulse Ox 98 09/28/19 10:00 Weight - Most Recent: 87.1 kg I&O - Last 24 Hours: Intake & Output 09/27/19 09/28/19 09/28/19 22:59 06:59 14:59 Intake Total 1699 4459 Output Total 0 2225 Balance 1699 2234 Lab Results Last 24 Hours: Laboratory Results - last 24 hr 09/27/19 09/28/19 09/28/19 Range/Units 09:30 06:15 06:15 WBC 13.68 H (4.0-11.0) K/uL RBC 4.59 (4.30-5.90) M/uL Hgb 13.5 (12.0-16.0) g/dL Hct 40.1 (36.0-46.0) % MCV 87.4 (80.0-98.0) fL MCH 29.4 (27.0-32.0) pg MCHC 33.7 (31.0-37.0) g/dL RDW Std Deviation 41.7 (28.0-62.0) fl RDW Coeff of Eros 13 (11.0-15.0) % Plt Count 353 (150-400) K/uL MPV 10.10 (7.40-12.00) fL Neut % (Auto) 72.9 (48.0-80.0) % Lymph % (Auto) 15.3 L (16.0-40.0) % Bowie % (Auto) 9.8 (0.0-15.0) % Eos % (Auto) 1.7 (0.0-7.0) % Baso % (Auto) 0.3 (0.0-1.5) % Neut # (Auto) 10.0 H (1.4-5.7) K/uL Lymph # (Auto) 2.1 (0.6-2.4) K/uL Bowie # (Auto) 1.3 H (0.0-0.8) K/uL Eos # (Auto) 0.2 (0.0-0.7) K/uL Baso # (Auto) 0.0 (0.0-0.1) K/uL Nucleated RBC % 0.0 /100WBC Nucleated RBCs # 0 K/uL Sodium 145 (136-145) mmol/L Potassium 4.3 (3.5-5.1) mmol/L Chloride 109 H (98-107) mmol/L Carbon Dioxide 28.0 (21.0-32.0) mmol/L BUN 10 (7.0-18.0) mg/dL Creatinine 0.9 (0.6-1.0) mg/dL Est Cr Clr Drug Dosing 87.70 mL/min Estimated GFR (MDRD) > 60.0 ml/min Glucose 133 H (74-106) mg/dL Calcium 9.1 (8.5-10.1) mg/dL Phosphorus 3.6 (2.6-4.7) mg/dL Magnesium 1.9 (1.8-2.4) mg/dL TSH 3rd Generation 1.38 (0.36-3.74) uIU/mL Med Orders - Current: Current Medications Acetaminophen (Tylenol) 650 mg PO Q4H PRN PRN Reason: Pain (moderate 4-6) Last Admin: 09/27/19 22:02 Dose: 650 mg Albuterol/Ipratropium (Duoneb 3.0-0.5 Mg/3 Ml) 3 ml NEB Q4HRRT PRN PRN Reason: Shortness Of Breath/wheezing Atropine Sulfate (Atropine 0.1 Mg/Ml) 0.5 mg IVPUSH ONETIME PRN PRN Reason: Bradycardia Lactated Ringer's (Ringers, Lactated) 1,000 mls @ 200 mls/hr IV ASDIRECTED LYLE Last Infusion: 09/28/19 09:45 Dose: 100 mls/hr Sodium Chloride ([place] Nasal Ethel) 1 ml TENISHA Q2H PRN PRN Reason: Dryness Last Admin: 09/28/19 04:21 Dose: 1 applic Discontinued Medications Atropine Sulfate (Atropine 0.1 Mg/Ml) 0.5 mg IVPUSH ONETIME ONE Stop: 09/27/19 10:09 Last Admin: 09/27/19 10:23 Dose: 0.5 mg Atropine Sulfate (Atropine 0.1 Mg/Ml) 0.5 mg IVPUSH ONETIME PRN PRN Reason: Bradycardia Last Admin: 09/28/19 00:35 Dose: 0.5 mg Atropine Sulfate (Atropine 1 Mg/Ml) 0.5 mg IVPUSH ONETIME PRN PRN Reason: Bradycardia Atropine Sulfate (Atropine 0.1 Mg/Ml) 0.5 mg IVPUSH ONETIME ONE Stop: 09/27/19 18:02 Last Admin: 09/27/19 17:45 Dose: 0.5 mg Lactated Ringer's (Ringers, Lactated) 1,000 mls @ 999 mls/hr IV .BOLUS ONE Stop: 09/27/19 15:14 Last Admin: 09/27/19 14:33 Dose: 999 mls/hr Naloxone HCl (Narcan) 0.4 mg IVPUSH ONETIME ONE Stop: 09/27/19 10:09 Last Admin: 09/27/19 10:24 Dose: 0.4 mg Sepsis Event Note - Evaluation Sepsis Screening Result: No Definite Risk - Focused Exam Vital Signs: Vital Signs Temp Resp BP Pulse Ox 09/28/19 10:00 10 L 90/71 98 09/28/19 09:00 13 127/54 L 99 09/28/19 08:00 35.8 C L 21 H 121/77 99 09/28/19 07:00 19 96 09/28/19 06:00 14 125/78 98 09/28/19 05:00 14 124/90 99 09/28/19 04:00 36.1 C 19 126/62 97 09/28/19 03:00 18 140/85 98 09/28/19 02:00 13 130/96 H 97 09/28/19 01:00 19 162/85 H 99 09/28/19 00:00 36.6 C 17 165/78 H 99 09/27/19 23:00 20 162/85 H 98 Date Exam was Performed: 09/28/19 Time Exam was Performed: 10:52 - Plan Plan:: 39 y/o F admitted for intentional clonidine overdose Patient currently denied SI, but did take Meds with intention to kill herself Received atropine and Narcan HR fluctuates between 30s to 70s, BP soft in low 100s SBP Will start IVF LR fluid bolus and maintenance fluid thereafter cont to monitor her HR closely, may received another dose of atropine if needed , If persistent arash and low BP may need to start Dopamine Will cont to monitor closely suicide precautions initiated
--- NOTE | 2019-09-28 11:39 | PN ---
THC Physician - Brief Progress [id number]/16/2020 11:04[facility] Curtis Cristobal, [place] - WADE (ARIADNA) - [place] EARLE JAMESONSlimDate of Service 09/28/2019 11:04HPI/Events of Note eICU progress [id number] female with past medical history of bipolar disorder, anxiety, endometriosis whopresented to the hospital after intentional drug overdose. Patient took multiple pi lls/uknown quantity (states "50 pills") and went to sleep (intention of not waking up). Pills include d clonidine, Xanax and Lamictal. Patient was noted to be bradycardic to the 30s and responded well t o atropine .5mg x 2 several hours apart last dose around midnight. Patients BP has been fluctuating 9 0's systolic to 150's systolic with ongoing IVF. Patient laying in bed, no acute distress and comfor table. Glasses on and on room air. Vitals reviewed- HR 43-54 and BP 97/65Labs/EMR/Imaging reviewedInt entional drug overdose- Overdosed on Clonidine/Xanax/Lamictal.- Poison control consulted/following.- Bradycardia/Hypotension likley due to clonidine. Atropine at bedside. Agree if persistently bradycard ic start Dopamine. - Avoid any sedative medications, if agitated recommend Haldol (please check QTc p rior to giving). Avoid precedex for now given bradycardia.- Recommend Psych consult. currently denyin g suicidal ideation, but will need to be considered for inpatient psych.- Recommend ET CO2 monitoring , if patient remains somnolent.- Suicide precautions. Will need sitter at bedside.DVT prophy- Recomme nd SCD'sGI prophy- recommend pepcidInterventions Major-Hypotension - evaluation and management, Other : Bradycardia
--- NOTE | 2019-09-28 14:23 | PCM.PN ---
- General Info Date of Service: 09/28/19 Subjective Update: Overnight, HR 40's. Had one dose of atropine. This morning, still endorsing suicidal ideation. - Patient Data Vitals - Most Recent: Last Vital Signs Temp 36.8 C 09/28/19 12:00 Pulse 82 09/27/19 11:13 Resp 13 09/28/19 12:00 BP 136/49 L 09/28/19 12:00 Pulse Ox 99 09/28/19 12:00 Weight - Most Recent: 87.1 kg I&O - Last 24 Hours: Intake & Output 09/27/19 09/28/19 09/28/19 22:59 06:59 14:59 Intake Total 1699 4459 Output Total 0 2225 Balance 1699 2234 Lab Results Last 24 Hours: Laboratory Results - last 24 hr 09/27/19 09/28/19 09/28/19 Range/Units 09:30 06:15 06:15 WBC 13.68 H (4.0-11.0) K/uL RBC 4.59 (4.30-5.90) M/uL Hgb 13.5 (12.0-16.0) g/dL Hct 40.1 (36.0-46.0) % MCV 87.4 (80.0-98.0) fL MCH 29.4 (27.0-32.0) pg MCHC 33.7 (31.0-37.0) g/dL RDW Std Deviation 41.7 (28.0-62.0) fl RDW Coeff of Eros 13 (11.0-15.0) % Plt Count 353 (150-400) K/uL MPV 10.10 (7.40-12.00) fL Neut % (Auto) 72.9 (48.0-80.0) % Lymph % (Auto) 15.3 L (16.0-40.0) % [place] % (Auto) 9.8 (0.0-15.0) % Eos % (Auto) 1.7 (0.0-7.0) % Baso % (Auto) 0.3 (0.0-1.5) % Neut # (Auto) 10.0 H (1.4-5.7) K/uL Lymph # (Auto) 2.1 (0.6-2.4) K/uL [place] # (Auto) 1.3 H (0.0-0.8) K/uL Eos # (Auto) 0.2 (0.0-0.7) K/uL Baso # (Auto) 0.0 (0.0-0.1) K/uL Nucleated RBC % 0.0 /100WBC Nucleated RBCs # 0 K/uL Sodium 145 (136-145) mmol/L Potassium 4.3 (3.5-5.1) mmol/L Chloride 109 H (98-107) mmol/L Carbon Dioxide 28.0 (21.0-32.0) mmol/L BUN 10 (7.0-18.0) mg/dL Creatinine 0.9 (0.6-1.0) mg/dL Est Cr Clr Drug Dosing 87.70 mL/min Estimated GFR (MDRD) > 60.0 ml/min Glucose 133 H (74-106) mg/dL Calcium 9.1 (8.5-10.1) mg/dL Phosphorus 3.6 (2.6-4.7) mg/dL Magnesium 1.9 (1.8-2.4) mg/dL TSH 3rd Generation 1.38 (0.36-3.74) uIU/mL Med Orders - Current: Current Medications Acetaminophen (Tylenol) 650 mg PO Q4H PRN PRN Reason: Pain (moderate 4-6) Last Admin: 09/27/19 22:02 Dose: 650 mg Albuterol/Ipratropium (Duoneb 3.0-0.5 Mg/3 Ml) 3 ml NEB Q4HRRT PRN PRN Reason: Shortness Of Breath/wheezing Atropine Sulfate (Atropine 0.1 Mg/Ml) 0.5 mg IVPUSH ONETIME PRN PRN Reason: Bradycardia Lactated Ringer's (Ringers, Lactated) 1,000 mls @ 100 mls/hr IV ASDIRECTED LYLE Last Admin: 09/28/19 12:10 Dose: 100 mls/hr Sodium Chloride ([place] Nasal [place]) 1 ml TENISHA Q2H PRN PRN Reason: Dryness Last Admin: 09/28/19 04:21 Dose: 1 applic Discontinued Medications Atropine Sulfate (Atropine 0.1 Mg/Ml) 0.5 mg IVPUSH ONETIME ONE Stop: 09/27/19 10:09 Last Admin: 09/27/19 10:23 Dose: 0.5 mg Atropine Sulfate (Atropine 0.1 Mg/Ml) 0.5 mg IVPUSH ONETIME PRN PRN Reason: Bradycardia Last Admin: 09/28/19 00:35 Dose: 0.5 mg Atropine Sulfate (Atropine 1 Mg/Ml) 0.5 mg IVPUSH ONETIME PRN PRN Reason: Bradycardia Atropine Sulfate (Atropine 0.1 Mg/Ml) 0.5 mg IVPUSH ONETIME ONE Stop: 09/27/19 18:02 Last Admin: 09/27/19 17:45 Dose: 0.5 mg Lactated Ringer's (Ringers, Lactated) 1,000 mls @ 999 mls/hr IV .BOLUS ONE Stop: 09/27/19 15:14 Last Admin: 09/27/19 14:33 Dose: 999 mls/hr Lactated Ringer's (Ringers, Lactated) 1,000 mls @ 200 mls/hr IV ASDIRECTED LYLE Last Infusion: 09/28/19 09:45 Dose: 100 mls/hr Naloxone HCl (Narcan) 0.4 mg IVPUSH ONETIME ONE Stop: 09/27/19 10:09 Last Admin: 09/27/19 10:24 Dose: 0.4 mg - Exam General: Alert, Oriented, Cooperative, No Acute Distress, Other (looks depressed , flat affect, mother at bedside) HEENT: Pupils Equal, Pupils Reactive Lungs: Clear to Auscultation, Normal Respiratory Effort. No: Crackles, Wheezing Cardiovascular: Regular Rhythm, Bradycardia GI/Abdominal Exam: Normal Bowel Sounds, Soft, Non-Tender, No Distention Extremities: Normal Inspection, No Pedal Edema Skin: Warm, Dry Sepsis Event Note - Evaluation Sepsis Screening Result: No Definite Risk - Focused Exam Vital Signs: Vital Signs Temp Resp BP Pulse Ox 09/28/19 12:00 36.8 C 13 136/49 L 99 09/28/19 11:00 14 97/65 99 09/28/19 10:00 10 L 90/71 98 09/28/19 09:00 13 127/54 L 99 09/28/19 08:00 35.8 C L 21 H 121/77 99 09/28/19 07:00 19 96 09/28/19 06:00 14 125/78 98 09/28/19 05:00 14 124/90 99 09/28/19 04:00 36.1 C 19 126/62 97 09/28/19 03:00 18 140/85 98 Date Exam was Performed: 09/28/19 Time Exam was Performed: 14:16 - Problem List Review Problem List Initiated/Reviewed/Updated: Yes - My Orders Last 24 Hours: My Active Orders 09/28/19 12:05 Lactated Ringers [Ringers, Lactated] 1,000 ml IV ASDIRECTED - Plan Plan:: A: 1. Suicide attempt with intentional overdose 2. Bradycardia P: 1. Patient continues to endorse suicidal ideation. Continue sitter for now. Spoke with Dr. Marion, Psychiatry, who will try to evaluate the patient later today or tomorrow. dispo: 1-2 days.
[2019-09-28] MEDS: Escitalopram 10 MG Tab PO SCH (23:03)
[2019-09-28] MEDS: lamoTRIgine 100 MG Tab PO SCH (23:13)
[2019-09-28] MEDS ORDERED: Nicotine 7 MG/24 Hr Patch TRDERM ONE (23:45)
--- NOTE | 2019-09-29 00:16 | PN ---
THC Physician - Brief Progress [id number]/17/2020 00:10[facility] [place] - [facility] (ARIADNA) - WADE EARLE JAMESONDate of Service 09/29/2019 00:10HPI/Events of Note Overnight eventsPatient asking for her home meds to be restarted. Also aking for Nicotine ia tc. Chart reviewed. Mrs Mckeon is a 39 yr old lady presenting after an intentional overdose of Cloni dine, Xanax and possibly Lamictal on 09/27 around noon. She has required Atropine for bradycardia and fluids for BP support. Unfortunately, she stil has suicidal ideation. Home meds reviewed.A/P:Medicati on OD with suicidal intent.Depression.- Poison Control ok'd restarting Venlafaxine, Lexapro, Straterr a and Lamictal if needed.- I ordered Lamictal 200 bid, Venlafaxine CR 75 qd and Lexapro 20 qd.- Patie nt will be medically cleared in am (based on time of ingestion) for psych transfer.- Also ordered Carson otine patch 7 mg.Interventions Intermediate-Other: resuming medications after overdose; smokerElectro nically Signed by: MAHOGANY RICKETTS) on 09/29/2019 00:16
[2019-09-29] MEDS: Sodium Chloride 0.65% Nasal Spray 45 ML Bottle NAS PRN ×3 (03:07→19:51)
[2019-09-29] MEDS: Acetaminophen 325 MG Tab PO PRN ×2 (03:09→08:19)
[2019-09-29] MEDS ORDERED: Ondansetron 4 MG Tab PO PRN (08:15)
[2019-09-29] MEDS: lamoTRIgine 100 MG Tab PO SCH ×2 (08:20→21:02)
[2019-09-29] MEDS: Venlafaxine 37.5 MG Cap.ER PO SCH (08:20)
[2019-09-29] MEDS: Escitalopram 10 MG Tab PO SCH (08:20)
[2019-09-29] MEDS: Nicotine 7 MG/24 Hr Patch TRDERM SCH (08:21)
[2019-09-29] MEDS: Lactated Ringers 1,000 ML IV SCH ×2 (08:28→19:11)
[2019-09-29] MEDS ORDERED: Diphenhydramine/Lidocaine/Nystatin Suspension 237 ML Bottle PO SCH (08:55)
--- NOTE | 2019-09-29 11:45 | PCM.PN ---
- General Info Date of Service: 09/29/19 Subjective Update: No acute events overnight. HR 40-50's. Complaining of throat pain. No chest pain. - Patient Data Vitals - Most Recent: Last Vital Signs Temp 36.8 C 09/29/19 08:00 Pulse 45 L 09/28/19 14:40 Resp 11 L 09/29/19 11:00 BP 95/52 L 09/29/19 11:00 Pulse Ox 96 09/29/19 11:00 Weight - Most Recent: 90.855 kg I&O - Last 24 Hours: Intake & Output 09/28/19 09/29/19 09/29/19 22:59 06:59 14:59 Intake Total 3143 2049 Output Total 2650 1600 Balance 493 449 Med Orders - Current: Current Medications Acetaminophen (Tylenol) 650 mg PO Q4H PRN PRN Reason: Pain (moderate 4-6) Last Admin: 09/29/19 08:19 Dose: 650 mg Albuterol/Ipratropium (Duoneb 3.0-0.5 Mg/3 Ml) 3 ml NEB Q4HRRT PRN PRN Reason: Shortness Of Breath/wheezing Atropine Sulfate (Atropine 0.1 Mg/Ml) 0.5 mg IVPUSH ONETIME PRN PRN Reason: Bradycardia Diphenhydramine/Nystatin/Lidocaine (Magic Mouthwash) 15 ml PO QID [facility] Escitalopram Oxalate (Lexapro) 20 mg PO DAILY [facility] Last Admin: 09/29/19 08:20 Dose: 20 mg Lactated Ringer's (Ringers, Lactated) 1,000 mls @ 100 mls/hr IV ASDIRECTED [facility] Last Admin: 09/29/19 08:28 Dose: 100 mls/hr Lamotrigine (Lamotrigine) 200 mg PO BID [facility] Last Admin: 09/29/19 08:20 Dose: 200 mg Nicotine (Habitrol) 7 mg TRDERM DAILY [facility] Last Admin: 09/29/19 08:21 Dose: 7 mg Ondansetron HCl (Zofran) 4 mg PO Q8H PRN PRN Reason: Nausea/Vomiting Last Admin: 09/29/19 08:28 Dose: 4 mg Quetiapine Fumarate (Seroquel) 25 mg PO BEDTIME [facility] Last Admin: 09/28/19 20:14 Dose: 25 mg Sodium Chloride ([place] Nasal [place]) 1 ml TENISHA Q2H PRN PRN Reason: Dryness Last Admin: 09/29/19 08:11 Dose: 1 spray Venlafaxine HCl (Effexor Xr) 75 mg PO DAILY [facility] Last Admin: 09/29/19 08:20 Dose: 75 mg Discontinued Medications Atropine Sulfate (Atropine 0.1 Mg/Ml) 0.5 mg IVPUSH ONETIME ONE Stop: 09/27/19 10:09 Last Admin: 09/27/19 10:23 Dose: 0.5 mg Atropine Sulfate (Atropine 0.1 Mg/Ml) 0.5 mg IVPUSH ONETIME PRN PRN Reason: Bradycardia Last Admin: 09/28/19 00:35 Dose: 0.5 mg Atropine Sulfate (Atropine 1 Mg/Ml) 0.5 mg IVPUSH ONETIME PRN PRN Reason: Bradycardia Atropine Sulfate (Atropine 0.1 Mg/Ml) 0.5 mg IVPUSH ONETIME ONE Stop: 09/27/19 18:02 Last Admin: 09/27/19 17:45 Dose: 0.5 mg Lactated Ringer's (Ringers, Lactated) 1,000 mls @ 999 mls/hr IV .BOLUS ONE Stop: 09/27/19 15:14 Last Admin: 09/27/19 14:33 Dose: 999 mls/hr Lactated Ringer's (Ringers, Lactated) 1,000 mls @ 200 mls/hr IV ASDIRECTED [facility] Last Infusion: 09/28/19 09:45 Dose: 100 mls/hr Naloxone HCl (Narcan) 0.4 mg IVPUSH ONETIME ONE Stop: 09/27/19 10:09 Last Admin: 09/27/19 10:24 Dose: 0.4 mg Nicotine (Habitrol) 7 mg TRDERM ONETIME ONE Stop: 09/28/19 23:46 Last Admin: 09/29/19 00:04 Dose: 7 mg Quetiapine Fumarate (Seroquel) 25 mg PO ONETIME ONE Stop: 09/28/19 19:35 Last Admin: 09/28/19 19:38 Dose: Not Given Quetiapine Fumarate (Seroquel) 50 mg PO BEDTIME [facility] Venlafaxine HCl (Effexor Xr) 75 mg PO BEDTIME [facility] - Exam General: Alert, Oriented, Cooperative, No Acute Distress Lungs: Clear to Auscultation, Normal Respiratory Effort. No: Crackles, Wheezing Cardiovascular: Regular Rhythm, Bradycardia Extremities: Normal Inspection, No Pedal Edema Skin: Warm, Dry Sepsis Event Note - Evaluation Sepsis Screening Result: No Definite Risk - Focused Exam Vital Signs: Vital Signs Temp Resp BP Pulse Ox 09/29/19 11:00 11 L 95/52 L 96 09/29/19 10:00 23 H 87/45 L 94 L 09/29/19 09:00 24 H 93/39 L 94 L 09/29/19 08:00 36.8 C 23 H 85/45 L 95 09/29/19 07:00 18 94/46 L 96 09/29/19 06:05 36.2 C 20 86/39 L 96 09/29/19 05:09 13 82/40 L 95 09/29/19 04:01 36.9 C 19 81/35 L 95 09/29/19 03:00 22 H 83/38 L 95 09/29/19 02:00 16 84/43 L 93 L 09/29/19 01:00 19 81/37 L 95 09/29/19 00:00 13 81/43 L 97 Date Exam was Performed: 09/29/19 Time Exam was Performed: 14:35 - Problem List Review Problem List Initiated/Reviewed/Updated: Yes - My Orders Last 24 Hours: My Active Orders 09/28/19 12:05 Lactated Ringers [Ringers, Lactated] 1,000 ml IV ASDIRECTED 09/28/19 15:15 Consult to Physician [CONS] Routine 09/28/19 15:17 Notify Provider Consults [RC] ASDIRECTED 09/28/19 21:00 QUEtiapine [SEROquel] 25 mg PO BEDTIME 09/29/19 08:15 Ondansetron [Zofran] 4 mg PO Q8H PRN 09/29/19 08:55 Diphenhyd/Lidocaine/Nystatin [Magic Mouthwash] 15 ml PO QID 09/29/19 11:28 EKG Documentation Completion [RC] STAT - Plan Plan:: A: 1. Intentional overdose 2. Bradycardia 3. Oral thrush P: 1. Patient evaluated last night by Dr. Marion, Psychiatry. Recommended inpatient treatment. Will call and try to transfer patient today. Started magic mouthwash for oral thrush. Medically stable. Dispo: pending transfer
[2019-09-29] MEDS ORDERED: Al and Mag Hydroxide/Diphenhydramine/Lidocaine/Simethicone 237 ML Bottle PO SCH (12:30)
--- NOTE | 2019-09-29 14:18 | CONS ---
DATE OF CONSULTATION: 09/28/2019 DATE OF : 1980 PRIMARY CARE PHYSICIAN: None PCP Site where the services are provided is [facility] in [place], [place]. Site where the services are provided from our offices in [facility]. Length of service for this 60-minute inpatient telemedicine event is 60 minutes. IDENTIFICATION: The patient is a 39-year-old female who was admitted to the inpatient MICU at [facility]. She is seen for psychiatric consultation per the request of staff attending, Dr. Ramsey, and his treatment team. CHIEF COMPLAINT: "I lost my family. My roommates. I just didn't want to be here anymore. It all came to a head." HISTORY OF PRESENT ILLNESS: The patient is a 39-year-old female who was admitted to the inpatient MICU at [facility] on September 27, 2019, secondary to an overdose with clonidine and benzodiazepines. Evidently, the patient who is pretty difficult to understand on interview states that she had some friends who were living in her parents' house who were busted for illegal drug possession, and she states that she has been very embarrassed by this turn of events because of her friends. She states she was not involved, but staff is reporting that while [facility]- [facility]ox was negative for alcohol on admission, she was cocaine positive. The patient states she has been feeling very hopeless. She cannot sleep. She is very agitated, having mood swings, but she knows she is also "mostly depressed," and she states she is having racing thoughts and ruminations "all the time." She also states she has been having some auditory hallucinations too. She denies that she is suicidal or homicidal, but is only alert and oriented x2, thinking today is actually still Sunday, the . She denies having any guns in the house. She initially wants to be discharged, but once pointed out that she needs help from a medical and psychiatric standpoint, she is cooperative with the remainder of the interview. MEDICATIONS AT TIME OF PRESENTATION: 1. Strattera 60 mg a day. 2. Regular Effexor mg a day per patient report. 3. Lamictal 200 mg b.i.d. 4. Clonidine. ALLERGIES: No known drug allergies. PAST MEDICAL HISTORY: The patient denies. REVIEW OF SYSTEMS: Negative for any acute difficulties or complications besides followup from the overdose. FAMILY PSYCHIATRIC AND CD HISTORY: Maternal grandmother has history of bipolar affective disease. Mother has a history of anxiety. PAST PSYCHIATRIC AND CD HISTORY: The patient reports few psychiatric hospitalizations, last one being in 04. She denies any chemical dependency treatments. Denies any previous suicide attempts, self-injurious behaviors, or eating disorder history. PAST PSYCHIATRIC MEDICATION HISTORY: Includes lithium and Ritalin. PAST PSYCHIATRIC DIAGNOSES: Include bipolar affective disease and attention deficit hyperactivity disorder. She sees a nurse practitioner, named Isis Mendez, at [facility] for her psychiatric outpatient care. SOCIAL HISTORY: The patient was born and raised in [place], [place]. The patient's parents were . The patient's highest level of education was 5 years of college. 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 She states she has never been and has no children. She had a miscarriage at 32 that she used to think about until this most recent event arose. She was living by herself in [place]. Denies any prior service or any current legal difficulties. She is Ca[employer]ism in terms of her [place] formation. She was enjoys working. MENTAL STATUS EXAM: The patient is a 39-year-old labile white female in no apparent distress. Speech is of rapid rate and rhythm. The patient is cognitively oriented x2, to person and place, but not to date. Gait and station are steady and normal. There are no abnormal motor movements or tics observed. Mood is upset. Affect is consistent with stated mood, labile and tearful, but for the most part able to be redirected throughout the course of the interview. There is no behavioral or stated evidence of acute suicidal or homicidal ideations. Thought content significant for auditory hallucinations. They do not appear to be command type. They are non-command type based on discussion with the patient. Thought processes are significant for racing thoughts, ruminations, some tangentiality, and thought blocking. The patient does appear to have some manic symptoms, loose associations evident. Judgment and insight do appear impaired given her current state of mind and mood lability. Motivation for help appears fair to good. VITALS: 117/98, 63, 20, and 98.6 degrees. IMPRESSION: Keene I: 1. Bipolar affective disease, mixed type, F31.60. 2. Psychosis, not otherwise specified, F29. 3. Anxiety disorder, not otherwise specified, F41.9. Keene II: None. Keene III: Status post overdose with attending complications. Keene IV: Severe. Keene V: 55. PLAN: 1. Continue to hold psych medications while the patient is being medically stabilized. 2. Recommend transferring the patient to inpatient psychiatry when patient is medically stabilized for further psychiatric care and evaluation and med management as it appears that her psychiatric medication on admission might not be the optimal regimen for her given her state of mind in terms of reported turn of events. 3. We will continue to follow up with the patient on an as-needed basis while she remains on inpatient MICU at [facility] in [place], [place]. 4. We will follow up with the patient sooner if any complications in the interim. 5. Crisis plan is in place. MAYURI / BRANDEN /[id number]
[2019-09-29] MEDS: Diphenhydramine/Lidocaine/Nystatin Suspension 237 ML Bottle PO SCH ×2 (18:02→21:03)
[2019-09-29 19:50] LABS: BLOOD UREA NITROGEN,BUN 9 mg/dL (7.0-18.0); CARBON DIOXIDE,CO2 21.6 mmol/L (21.0-32.0); CHLORIDE,CL 108 mmol/L (98-107); GLUCOSE RANDOM 113 mg/dL (74-106); POTASSIUM,K 3.9 mmol/L (3.5-5.1); SODIUM,NA 143 mmol/L (136-145)
[2019-09-29] MEDS ORDERED: Magnesium Sulfate/Water 2 GM in Premix Bag 1 BAG IV ONE (19:52)
[2019-09-29] MEDS ORDERED: Venlafaxine 37.5 MG Cap.ER PO SCH (21:00)
[2019-09-29] MEDS ORDERED: Potassium Chloride 20 MEQ Tab.ER PO ONE (21:36)
--- NOTE | 2019-09-29 21:43 | PN ---
THC Physician - Brief Progress [id number]/17/2020 21:39[facility] Curtis man, NAHOMY - WADE (ARIADNA) - WADE AVILAFADIEARLEDate of Service 09/29/2019 21:39HPI/Events of Note 39-year-old female was admitted to the ICU with clonidine, Xanax and possible Lamictal overd ose.On the request of poison control ordered potassium replacement to maintain potassium more than 4 and will check EKG and electrolytes in 6 hours.Interventions Intermediate-[facility] with [facility] and/or family, Electrolyte abnormality - evaluation and management, Medication paul nge / dose adjustment
[2019-09-30] MEDS: Sodium Chloride 0.65% Nasal Spray 45 ML Bottle NAS PRN (01:08)
[2019-09-30] MEDS: Acetaminophen 325 MG Tab PO PRN (03:18)
[2019-09-30] MEDS: Lactated Ringers 1,000 ML IV SCH (05:18)
[2019-09-30 05:34] LABS: BLOOD UREA NITROGEN,BUN 6 mg/dL (7.0-18.0); CARBON DIOXIDE,CO2 25.1 mmol/L (21.0-32.0); CHLORIDE,CL 110 mmol/L (98-107); GLUCOSE RANDOM 99 mg/dL (74-106); POTASSIUM,K 4.1 mmol/L (3.5-5.1); SODIUM,NA 145 mmol/L (136-145)
[2019-09-30] MEDS: Diphenhydramine/Lidocaine/Nystatin Suspension 237 ML Bottle PO SCH ×2 (06:30→10:43)
[2019-09-30] MEDS: Nicotine 7 MG/24 Hr Patch TRDERM SCH (09:04)
[2019-09-30] MEDS: Venlafaxine 37.5 MG Cap.ER PO SCH (09:04)
[2019-09-30] MEDS: lamoTRIgine 100 MG Tab PO SCH (09:04)
[2019-09-30] MEDS: Escitalopram 10 MG Tab PO SCH ×2 (09:04→09:12)
[2019-09-30] MEDS ORDERED: Loperamide 2 MG Cap PO PRN (10:21)
--- NOTE | 2019-09-30 10:48 | PCM.DCSUM1 ---
<Checo Martin - Last Filed: 09/30/19 10:49> Discharge Summary - Hospital Course Free Text/Narrative:: 39 y/o female with history of bipolar disorder who presented to the ER on 09/27/2019 after intentional overdose with clonidine, amount unknown. Urine drug screen positive for benzodiazepines, cocaine, marijuana. She was admitted for medical clearance due to intentional clonidine overdose. Poison control was contacted and made aware of the patient. Her blood pressure, heart rate were monitored which stabilized after hydration with normal saline. In addition, serial EKG were done which showed improving QT interval. Her electrolytes were replaced. Dr Marion was consulted who evaluated the patient and recommended inpatient psychiatry. At time of discharge, patient was hemodynamically stable. I discussed the patient with Dr. Hankins at [facility] who accepted the patient as direct admit. - Discharge Data Discharge Date: 09/30/19 Discharge Disposition: DC/Tfer to Psych Hosp[facility]Unit [facility] Condition: Stable - Referral to Home Health Primary Care Physician: PCP None - Patient Summary/Data Consults: Consultations 09/28/19 15:15 Consult to Physician [CONS] Routine - Discharge Plan Home Medications: Home Meds l-Norgest/E.estradion-E.estrad [Seasonique 0.15-0.03-0.01] 1 each PO DAILY 03/29 [History] lamoTRIgine [LaMICtal] 200 mg PO BID 03/29/14 [History] Escitalopram [Lexapro] 20 mg PO DAILY 05/02/17 [History] atoMOXetine HCl [Strattera] 60 mg PO DAILY 05/02/17 [History] Venlafaxine HCl [Venlafaxine HCl ER] 75 mg PO DAILY 09/27/19 [History] cloNIDine HCL [Clonidine HCl] 0.1 mg PO TID PRN 09/29/19 [History] cloNIDine HCL [Clonidine HCl] 0.2 mg PO BEDTIME PRN 09/29/19 [History] hydrOXYzine pamoate [Hydroxyzine Pamoate] 25 mg PO BEDTIME PRN 09/29/19 [History ] Patient Handouts: Drug Overdose - Discharge Summary/Plan Comment DC Time >30 min.: No - Patient Data Vitals - Most Recent: Last Vital Signs Temp 36.8 C 09/30/19 10:00 Pulse 95 02/18/20 10:00 Resp 20 09/30/19 10:00 BP 110/56 L 09/30/19 10:00 Pulse Ox 99 09/30/19 10:00 Weight - Most Recent: 88.813 kg I&O - Last 24 hours: Intake & Output 09/29/19 09/30/19 09/30/19 22:59 06:59 14:59 Intake Total 2990 700 240 Output Total 1550 1200 200 Balance 1440 -500 40 Lab Results - Last 24 hrs: Laboratory Results - last 24 hr 09/29/19 09/29/19 09/30/19 Range/Units 19:20 19:20 05:09 WBC 8.12 7.28 (4.0-11.0) K/uL RBC 4.33 4.38 (4.30-5.90) M/uL Hgb 12.8 12.8 (12.0-16.0) g/dL Hct 37.5 38.3 (36.0-46.0) % MCV 86.6 87.4 (80.0-98.0) fL MCH 29.6 29.2 (27.0-32.0) pg MCHC 34.1 33.4 (31.0-37.0) g/dL RDW Std Deviation 42.0 42.6 (28.0-62.0) fl RDW Coeff of Eros 13 13 (11.0-15.0) % Plt Count 261 244 (150-400) K/uL MPV 10.10 10.30 (7.40-12.00) fL Neut % (Auto) 66.5 56.3 (48.0-80.0) % Lymph % (Auto) 13.7 L 21.0 (16.0-40.0) % [place] % (Auto) 17.2 H 18.8 H (0.0-15.0) % Eos % (Auto) 2.1 3.2 (0.0-7.0) % Baso % (Auto) 0.5 0.7 (0.0-1.5) % Neut # (Auto) 5.4 4.1 (1.4-5.7) K/uL Lymph # (Auto) 1.1 1.5 (0.6-2.4) K/uL [place] # (Auto) 1.4 H 1.4 H (0.0-0.8) K/uL Eos # (Auto) 0.2 0.2 (0.0-0.7) K/uL Baso # (Auto) 0.0 0.1 (0.0-0.1) K/uL Nucleated RBC % 0.0 0.0 /100WBC Nucleated RBCs # 0 0 K/uL Sodium 143 (136-145) mmol/L Potassium 3.9 (3.5-5.1) mmol/L Chloride 108 H (98-107) mmol/L Carbon Dioxide 21.6 (21.0-32.0) mmol/L BUN 9 (7.0-18.0) mg/dL Creatinine 0.9 (0.6-1.0) mg/dL Est Cr Clr Drug Dosing 87.39 mL/min Estimated GFR (MDRD) > 60.0 ml/min Glucose 113 H (74-106) mg/dL Calcium 8.8 (8.5-10.1) mg/dL Magnesium 1.7 L (1.8-2.4) mg/dL 09/30/19 Range/Units 05:09 WBC (4.0-11.0) K/uL RBC (4.30-5.90) M/uL Hgb (12.0-16.0) g/dL Hct (36.0-46.0) % MCV (80.0-98.0) fL MCH (27.0-32.0) pg MCHC (31.0-37.0) g/dL RDW Std Deviation (28.0-62.0) fl RDW Coeff of Eros (11.0-15.0) % Plt Count (150-400) K/uL MPV (7.40-12.00) fL Neut % (Auto) (48.0-80.0) % Lymph % (Auto) (16.0-40.0) % [place] % (Auto) (0.0-15.0) % Eos % (Auto) (0.0-7.0) % Baso % (Auto) (0.0-1.5) % Neut # (Auto) (1.4-5.7) K/uL Lymph # (Auto) (0.6-2.4) K/uL [place] # (Auto) (0.0-0.8) K/uL Eos # (Auto) (0.0-0.7) K/uL Baso # (Auto) (0.0-0.1) K/uL Nucleated RBC % /100WBC Nucleated RBCs # K/uL Sodium 145 (136-145) mmol/L Potassium 4.1 (3.5-5.1) mmol/L Chloride 110 H (98-107) mmol/L Carbon Dioxide 25.1 (21.0-32.0) mmol/L BUN 6 L (7.0-18.0) mg/dL Creatinine 0.9 (0.6-1.0) mg/dL Est Cr Clr Drug Dosing 87.39 mL/min Estimated GFR (MDRD) > 60.0 ml/min Glucose 99 (74-106) mg/dL Calcium 8.6 (8.5-10.1) mg/dL Magnesium 2.2 (1.8-2.4) mg/dL RAMO Results - Last 24 hrs: Microbiology 09/29/19 17:05 C. difficile Antigen & Toxins A,B - Final Stool / Feces Med Orders - Current: Current Medications Acetaminophen (Tylenol) 650 mg PO Q4H PRN PRN Reason: Pain (moderate 4-6) Last Admin: 09/30/19 03:18 Dose: 650 mg Albuterol/Ipratropium (Duoneb 3.0-0.5 Mg/3 Ml) 3 ml NEB Q4HRRT PRN PRN Reason: Shortness Of Breath/wheezing Atropine Sulfate (Atropine 0.1 Mg/Ml) 0.5 mg IVPUSH ONETIME PRN PRN Reason: Bradycardia Diphenhydramine/Nystatin/Lidocaine (Magic Mouthwash) 15 ml PO QIDACANDBED [facility] Last Admin: 09/30/19 06:30 Dose: 15 ml Escitalopram Oxalate (Lexapro) 20 mg PO DAILY [facility] Last Admin: 09/30/19 09:12 Dose: Not Given Lactated Ringer's (Ringers, Lactated) 1,000 mls @ 100 mls/hr IV ASDIRECTED [facility] Last Admin: 09/30/19 05:18 Dose: 100 mls/hr Lamotrigine (Lamotrigine) 200 mg PO BID [facility] Last Admin: 09/30/19 09:04 Dose: 200 mg Loperamide HCl (Imodium) 2 mg PO Q6H PRN PRN Reason: Diarrhea Nicotine (Habitrol) 7 mg TRDERM DAILY [facility] Last Admin: 09/30/19 09:04 Dose: 7 mg Quetiapine Fumarate (Seroquel) 25 mg PO BEDTIME [facility] Last Admin: 09/29/19 20:36 Dose: Not Given Sodium Chloride ([place] Nasal [place]) 1 ml TENISHA Q2H PRN PRN Reason: Dryness Last Admin: 09/30/19 01:08 Dose: 2 spray Venlafaxine HCl (Effexor Xr) 75 mg PO DAILY [facility] Last Admin: 09/30/19 09:04 Dose: 75 mg Discontinued Medications Atropine Sulfate (Atropine 0.1 Mg/Ml) 0.5 mg IVPUSH ONETIME ONE Stop: 09/27/19 10:09 Last Admin: 09/27/19 10:23 Dose: 0.5 mg Atropine Sulfate (Atropine 0.1 Mg/Ml) 0.5 mg IVPUSH ONETIME PRN PRN Reason: Bradycardia Last Admin: 09/28/19 00:35 Dose: 0.5 mg Atropine Sulfate (Atropine 1 Mg/Ml) 0.5 mg IVPUSH ONETIME PRN PRN Reason: Bradycardia Atropine Sulfate (Atropine 0.1 Mg/Ml) 0.5 mg IVPUSH ONETIME ONE Stop: 09/27/19 18:02 Last Admin: 09/27/19 17:45 Dose: 0.5 mg Diphenhydr/Magaldrate/Simeth/Lidoca (First-Mouthwash Blm) 15 ml PO QID [facility] Last Admin: 09/29/19 12:53 Dose: 15 ml Lactated Ringer's (Ringers, Lactated) 1,000 mls @ 999 mls/hr IV .BOLUS ONE Stop: 09/27/19 15:14 Last Admin: 09/27/19 14:33 Dose: 999 mls/hr Lactated Ringer's (Ringers, Lactated) 1,000 mls @ 200 mls/hr IV ASDIRECTED [facility] Last Infusion: 09/28/19 09:45 Dose: 100 mls/hr Magnesium Sulfate 2 gm/ Premix 50 mls @ 25 mls/hr IV ONETIME ONE Stop: 02/17/20 21:51 Last Admin: 09/29/19 20:15 Dose: 25 mls/hr Naloxone HCl (Narcan) 0.4 mg IVPUSH ONETIME ONE Stop: 09/27/19 10:09 Last Admin: 09/27/19 10:24 Dose: 0.4 mg Nicotine (Habitrol) 7 mg TRDERM ONETIME ONE Stop: 09/28/19 23:46 Last Admin: 09/29/19 00:04 Dose: 7 mg Ondansetron HCl (Zofran) 4 mg PO Q8H PRN PRN Reason: Nausea/Vomiting Last Admin: 09/29/19 08:28 Dose: 4 mg Potassium Chloride (Klor-Con M20) 40 meq PO ONETIME ONE Stop: 09/29/19 21:37 Last Admin: 09/29/19 21:51 Dose: 40 meq Quetiapine Fumarate (Seroquel) 25 mg PO ONETIME ONE Stop: 09/28/19 19:35 Last Admin: 09/28/19 19:38 Dose: Not Given Quetiapine Fumarate (Seroquel) 50 mg PO BEDTIME LYLE Venlafaxine HCl (Effexor Xr) 75 mg PO BEDTIME LYLE <Edinson Ramsey J - Last Filed: 10/02/19 10:42> Discharge Summary - Referral to Home Health Primary Care Physician: PCP None - Patient Summary/Data Consults: Consultations 09/28/19 15:15 Consult to Physician [CONS] Routine - Patient Data Vitals - Most Recent: Last Vital Signs Temp 36.8 C 09/30/19 11:00 Pulse 77 09/30/19 11:00 Resp 18 09/30/19 11:00 BP 112/59 L 09/30/19 11:00 Pulse Ox 95 09/30/19 11:00 RAMO Results - Last 24 hrs: Microbiology 09/29/19 17:05 Stool Culture - Preliminary Stool / Feces Shiga Toxin I & II - Final 09/29/19 17:05 Stool Lactoferrin - Final Stool / Feces Med Orders - Current: Current Medications Discontinued Medications Acetaminophen (Tylenol) 650 mg PO Q4H PRN PRN Reason: Pain (moderate 4-6) Last Admin: 09/30/19 03:18 Dose: 650 mg Albuterol/Ipratropium (Duoneb 3.0-0.5 Mg/3 Ml) 3 ml NEB Q4HRRT PRN PRN Reason: Shortness Of Breath/wheezing Atropine Sulfate (Atropine 0.1 Mg/Ml) 0.5 mg IVPUSH ONETIME ONE Stop: 09/27/19 10:09 Last Admin: 09/27/19 10:23 Dose: 0.5 mg Atropine Sulfate (Atropine 0.1 Mg/Ml) 0.5 mg IVPUSH ONETIME PRN PRN Reason: Bradycardia Last Admin: 09/28/19 00:35 Dose: 0.5 mg Atropine Sulfate (Atropine 1 Mg/Ml) 0.5 mg IVPUSH ONETIME PRN PRN Reason: Bradycardia Atropine Sulfate (Atropine 0.1 Mg/Ml) 0.5 mg IVPUSH ONETIME ONE Stop: 09/27/19 18:02 Last Admin: 09/27/19 17:45 Dose: 0.5 mg Atropine Sulfate (Atropine 0.1 Mg/Ml) 0.5 mg IVPUSH ONETIME PRN PRN Reason: Bradycardia Diphenhydr/Magaldrate/Simeth/Lidoca (First-Mouthwash Blm) 15 ml PO QID [facility] Last Admin: 09/29/19 12:53 Dose: 15 ml Diphenhydramine/Nystatin/Lidocaine (Magic Mouthwash) 15 ml PO QIDACANDBED [facility] Last Admin: 09/30/19 10:43 Dose: 15 ml Escitalopram Oxalate (Lexapro) 20 mg PO DAILY [facility] Last Admin: 09/30/19 09:12 Dose: Not Given Lactated Ringer's (Ringers, Lactated) 1,000 mls @ 999 mls/hr IV .BOLUS ONE Stop: 09/27/19 15:14 Last Admin: 09/27/19 14:33 Dose: 999 mls/hr Lactated Ringer's (Ringers, Lactated) 1,000 mls @ 200 mls/hr IV ASDIRECTED [facility] Last Infusion: 09/28/19 09:45 Dose: 100 mls/hr Lactated Ringer's (Ringers, Lactated) 1,000 mls @ 100 mls/hr IV ASDIRECTED [facility] Last Admin: 09/30/19 05:18 Dose: 100 mls/hr Magnesium Sulfate 2 gm/ Premix 50 mls @ 25 mls/hr IV ONETIME ONE Stop: 09/29/19 21:51 Last Admin: 09/29/19 20:15 Dose: 25 mls/hr Lamotrigine (Lamotrigine) 200 mg PO BID [facility] Last Admin: 09/30/19 09:04 Dose: 200 mg Loperamide HCl (Imodium) 2 mg PO Q6H PRN PRN Reason: Diarrhea Last Admin: 09/30/19 10:43 Dose: 2 mg Naloxone HCl (Narcan) 0.4 mg IVPUSH ONETIME ONE Stop: 09/27/19 10:09 Last Admin: 09/27/19 10:24 Dose: 0.4 mg Nicotine (Habitrol) 7 mg TRDERM DAILY [facility] Last Admin: 09/30/19 09:04 Dose: 7 mg Nicotine (Habitrol) 7 mg TRDERM ONETIME ONE Stop: 09/28/19 23:46 Last Admin: 09/29/19 00:04 Dose: 7 mg Ondansetron HCl (Zofran) 4 mg PO Q8H PRN PRN Reason: Nausea/Vomiting Last Admin: 09/29/19 08:28 Dose: 4 mg Potassium Chloride (Klor-Con M20) 40 meq PO ONETIME ONE Stop: 09/29/19 21:37 Last Admin: 09/29/19 21:51 Dose: 40 meq Quetiapine Fumarate (Seroquel) 25 mg PO ONETIME ONE Stop: 09/28/19 19:35 Last Admin: 09/28/19 19:38 Dose: Not Given Quetiapine Fumarate (Seroquel) 50 mg PO BEDTIME LYLE Quetiapine Fumarate (Seroquel) 25 mg PO BEDTIME [facility] Last Admin: 09/29/19 20:36 Dose: Not Given Sodium Chloride ([place] Nasal [place]) 1 ml TENISHA Q2H PRN PRN Reason: Dryness Last Admin: 09/30/19 01:08 Dose: 2 spray Venlafaxine HCl (Effexor Xr) 75 mg PO BEDTIME LYLE Venlafaxine HCl (Effexor Xr) 75 mg PO DAILY [facility] Last Admin: 09/30/19 09:04 Dose: 75 mg - Free Text/Narrative Note: I have seen and evaluated the patient with the resident. I have discussed the findings and treatment plan with the resident. I agree with the assessment and plan as outlined in the following note.
[2019-09-30 11:06] VITALS: BP 112/59; PULSE 77
== END 2019-09-30 11:40 | DRG 812 ==
LOC: MW.ED 09:15 → MW.ICU 13:14
PROVIDERS: ADMIT Student in an Organized Health Care Education/Training Program; ATTEND Student in an Organized Health Care Education/Training Program
DX: T46.5X2A Poisoning by other antihypertensive drugs, intentional self-harm, initial encounter (principal); H54.7 Unspecified visual loss; F41.9 Anxiety disorder, unspecified; T42.6X2A Poisoning by other antiepileptic and sedative-hypnotic drugs, intentional self-harm, initial encounter; T42.4X2A Poisoning by benzodiazepines, intentional self-harm, initial encounter; R00.1 Bradycardia, unspecified; F31.60 Bipolar disorder, current episode mixed, unspecified; F29 Unspecified psychosis not due to a substance or known physiological condition; B37.0 Candidal stomatitis; Z79.899 Other long term (current) drug therapy; Z98.890 Other specified postprocedural states; Z87.442 Personal history of urinary calculi; Z99.81 Dependence on supplemental oxygen
CPT/HCPCS: 36415; 71045; 71045-26; 80048; 80053; 80305-QW; 80307; 81003; 81025; 83630; 83735; 84100; 84443; 84450; 84460; 85025; 87045; 87046; 87324; 87899; 93005; 96374; 96375; 99284; 99285-25; A9270-GY; J0461; J3475; J7120

== ENCOUNTER 2021-01-10 01:14 | Emergency (ER) | payer BC ==
[2021-01-10] MEDS ORDERED: Ketorolac 15 MG/ML SDV IVPUSH ONE (01:46)
--- NOTE | 2021-01-10 01:53 | EDM.PDOC ---
ED HPI GENERAL MEDICAL PROBLEM - General Chief Complaint: Genitourinary Problem Stated Complaint: KIDNEY STONES Time Seen by Provider: 01/10/21 01:24 Source of Information: Reports: Patient History Limitations: Reports: No Limitations - History of Present Illness INITIAL COMMENTS - FREE TEXT/NARRATIVE: Patient is a 40-year-old female presents today for lower abdominal pain started around 4 PM. Patient states that she also started having blood in her urine today. Patient states a kidney stone but denies any pain in the flank is not really normal kidney stone. Patient denies any nausea vomiting fever chills but does report increase in station to urinate. lower abdomen Pain Score (Numeric/FACES): 4 - Related Data Allergies Allergy/AdvReac Type Severity Reaction Status Date / Time No Known Allergies Allergy Verified 01/10/21 01:54 Home Meds: Home Meds lamoTRIgine [LaMICtal] 200 mg PO BID 03/29/14 [History] atoMOXetine HCl [Strattera] 60 mg PO DAILY 05/02/17 [History] hydrOXYzine pamoate [Hydroxyzine Pamoate] 50 mg PO BEDTIME PRN 09/29/19 [History] Vortioxetine Hydrobromide [Brintellix] 5 mg PO DAILY 01/10/21 [History] Past Medical History - Past Health History Medical/Surgical History: Denies Medical/Surgical History HEENT History: Reports: Impaired Vision Cardiovascular History: Reports: None Respiratory History: Reports: None Genitourinary History: Reports: Renal Calculus, Other (See Below) Other Genitourinary History: kidney infections 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: Reports: 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 Musculoskeletal History: Reports: None Neurological History: Reports: Headaches, Chronic Psychiatric History: Reports: Anxiety, Bipolar Endocrine/Metabolic History: Reports: None Hematologic History: Reports: None Immunologic History: Reports: None Dermatologic History: Reports: None - Infectious Disease History Infectious Disease History: Reports: Chicken Pox - Past Surgical History HEENT Surgical History: Reports: Eye Surgery, Other (See Below) Other HEENT Surgeries/Procedures: surgery for lazy eye as a baby GI Surgical History: Reports: Other (See Below) Female Surgical History: Reports: Lithotripsy/ESWL Social & Family History - Family History Family Medical History: No Pertinent Family History - Caffeine Use Caffeine Use: Reports: Coffee ED ROS GENERAL - Review of Systems Review Of Systems: See Below Constitutional: Reports: No Symptoms HEENT: Reports: No Symptoms Respiratory: Reports: No Symptoms Cardiovascular: Reports: No Symptoms Endocrine: Reports: No Symptoms GI/Abdominal: Reports: Abdominal Pain : Reports: No Symptoms Musculoskeletal: Reports: No Symptoms Skin: Reports: No Symptoms Neurological: Reports: No Symptoms Psychiatric: Reports: No Symptoms Hematologic/Lymphatic: Reports: No Symptoms Immunologic: Reports: No Symptoms ED EXAM, GI/ABD - Physical Exam Exam: See Below Exam Limited By: No Limitations General Appearance: Alert, WD/WN, No Apparent Distress Head: Atraumatic Neck: Normal Inspection Respiratory/Chest: No Respiratory Distress, Lungs Clear, Normal Breath Sounds Cardiovascular: Normal Peripheral Pulses, Regular Rate, Rhythm GI/Abdominal Exam: Normal Bowel Sounds, Soft, Non-Tender Extremities: Normal Inspection, Normal Range of Motion Neurological: Alert, Oriented, Normal Cognition, Normal Gait Course - Vital Signs Last Recorded V/S: Last Vital Signs Temp 97.2 F 01/10/21 01:51 Pulse 108 H 01/10/21 01:51 Resp 18 01/10/21 01:51 BP 148/101 H 01/10/21 01:51 Pulse Ox 97 01/10/21 01:51 - Orders/Labs/Meds Orders: Active Orders 24 hr Category Date Time Status Communication Order [RC] STAT Care 01/10/21 03:07 Active Labs: Laboratory Tests 01/10/21 01/10/21 01/10/21 Range/Units 01:30 01:30 02:14 WBC 9.25 (4.0-11.0) K/uL RBC 4.26 L (4.30-5.90) M/uL Hgb 13.1 (12.0-16.0) g/dL Hct 39.2 (36.0-46.0) % MCV 92.0 (80.0-98.0) fL MCH 30.8 (27.0-32.0) pg MCHC 33.4 (31.0-37.0) g/dL RDW Std Deviation 48.8 (28.0-62.0) fl RDW Coeff of Eros 15 (11.0-15.0) % Plt Count 354 (150-400) K/uL MPV 9.50 (7.40-12.00) fL Neut % (Auto) 52.8 (48.0-80.0) % Lymph % (Auto) 33.0 (16.0-40.0) % [place] % (Auto) 10.2 (0.0-15.0) % Eos % (Auto) 3.6 (0.0-7.0) % Baso % (Auto) 0.4 (0.0-1.5) % Neut # (Auto) 4.9 (1.4-5.7) K/uL Lymph # (Auto) 3.1 H (0.6-2.4) K/uL [place] # (Auto) 0.9 H (0.0-0.8) K/uL Eos # (Auto) 0.3 (0.0-0.7) K/uL Baso # (Auto) 0.0 (0.0-0.1) K/uL Nucleated RBC % 0.0 /100WBC Nucleated RBCs # 0 K/uL Sodium (136-145) mmol/L Potassium (3.5-5.1) mmol/L Chloride (98-107) mmol/L Carbon Dioxide (21.0-32.0) mmol/L BUN (7.0-18.0) mg/dL Creatinine (0.6-1.0) mg/dL Est Cr Clr Drug Dosing mL/min Estimated GFR (MDRD) ml/min Glucose (74-106) mg/dL Calcium (8.5-10.1) mg/dL Total Bilirubin (0.2-1.0) mg/dL AST (15-37) IU/L ALT (14-63) IU/L Alkaline Phosphatase (46-116) U/L Total Protein (6.4-8.2) g/dL Albumin (3.4-5.0) g/dL Globulin (2.6-4.0) g/dL Albumin/Globulin Ratio (0.9-1.6) Lipase (73-393) U/L Urine Color ORANGE Urine Appearance CLOUDY Urine pH 6.5 (5.0-8.0) Ur Specific [place] 1.025 (1.001-1.035) Urine Protein >=300 H (NEGATIVE) mg/dL Urine Glucose (UA) 250 H (NEGATIVE) mg/dL Urine Ketones 15 H (NEGATIVE) mg/dL Urine Occult Blood LARGE H (NEGATIVE) Urine Nitrite POSITIVE H (NEGATIVE) Urine Bilirubin NEGATIVE (NEGATIVE) Urine Urobilinogen >=8.0 H (<2.0) EU/dL Ur Leukocyte Esterase SMALL H (NEGATIVE) Urine RBC 250-300 (0-2/HPF) Urine WBC 2-3 (0-5/HPF) Ur Epithelial Cells OCCASIONAL (NONE-FEW) Amorphous Sediment FEW (NEGATIVE) Urine Bacteria 1+ H (NEGATIVE) Urine Mucus FEW (NONE-MOD) Urine HCG, Qual NEGATIVE (NEGATIVE) 01/10/21 Range/Units 02:14 WBC (4.0-11.0) K/uL RBC (4.30-5.90) M/uL Hgb (12.0-16.0) g/dL Hct (36.0-46.0) % MCV (80.0-98.0) fL MCH (27.0-32.0) pg MCHC (31.0-37.0) g/dL RDW Std Deviation (28.0-62.0) fl RDW Coeff of Eros (11.0-15.0) % Plt Count (150-400) K/uL MPV (7.40-12.00) fL Neut % (Auto) (48.0-80.0) % Lymph % (Auto) (16.0-40.0) % [place] % (Auto) (0.0-15.0) % Eos % (Auto) (0.0-7.0) % Baso % (Auto) (0.0-1.5) % Neut # (Auto) (1.4-5.7) K/uL Lymph # (Auto) (0.6-2.4) K/uL [place] # (Auto) (0.0-0.8) K/uL Eos # (Auto) (0.0-0.7) K/uL Baso # (Auto) (0.0-0.1) K/uL Nucleated RBC % /100WBC Nucleated RBCs # K/uL Sodium 141 (136-145) mmol/L Potassium 3.4 L (3.5-5.1) mmol/L Chloride 106 (98-107) mmol/L Carbon Dioxide 23.8 (21.0-32.0) mmol/L BUN 27 H (7.0-18.0) mg/dL Creatinine 1.0 (0.6-1.0) mg/dL Est Cr Clr Drug Dosing 80.87 mL/min Estimated GFR (MDRD) > 60.0 ml/min Glucose 106 (74-106) mg/dL Calcium 8.9 (8.5-10.1) mg/dL Total Bilirubin 0.3 (0.2-1.0) mg/dL AST 13 L (15-37) IU/L ALT 23 (14-63) IU/L Alkaline Phosphatase 105 (46-116) U/L Total Protein 7.5 (6.4-8.2) g/dL Albumin 3.8 (3.4-5.0) g/dL Globulin 3.7 (2.6-4.0) g/dL Albumin/Globulin Ratio 1.0 (0.9-1.6) Lipase 213 (73-393) U/L Urine Color Urine Appearance Urine pH (5.0-8.0) Ur Specific [place] (1.001-1.035) Urine Protein (NEGATIVE) mg/dL Urine Glucose (UA) (NEGATIVE) mg/dL Urine Ketones (NEGATIVE) mg/dL Urine Occult Blood (NEGATIVE) Urine Nitrite (NEGATIVE) Urine Bilirubin (NEGATIVE) Urine Urobilinogen (<2.0) EU/dL Ur Leukocyte Esterase (NEGATIVE) Urine RBC (0-2/HPF) Urine WBC (0-5/HPF) Ur Epithelial Cells (NONE-FEW) Amorphous Sediment (NEGATIVE) Urine Bacteria (NEGATIVE) Urine Mucus (NONE-MOD) Urine HCG, Qual (NEGATIVE) Meds: Medications Discontinued Medications Generic Name Dose Route Start Last Admin Trade Name Freq PRN Reason Stop Dose Admin Sodium Chloride 1,000 mls @ 999 mls/hr 01/10/21 02:15 01/10/21 02:21 Normal Saline IV 01/10/21 03:15 999 mls/hr .BOLUS ONE Administration Ketorolac Tromethamine 15 mg 01/10/21 01:46 01/10/21 02:13 Ketorolac 15 Mg/Ml Sdv IVPUSH 01/10/21 01:47 15 mg ONETIME ONE Administration Morphine Sulfate 2 mg 01/10/21 03:49 01/10/21 04:03 Morphine 2 Mg/Ml Syringe IVPUSH 01/10/21 03:50 2 mg ONETIME ONE Administration - Re-Assessments/Exams Free Text/Narrative Re-Assessment/Exam: 01/10/21 04:04 Patient has a 2 mm stone. Patient pain is better will be discharged home. Departure - Departure Time of Disposition: 04:05 Disposition: Home, Self-Care 01 Condition: Good Clinical Impression: Kidney stone - Discharge Information *PRESCRIPTION DRUG MONITORING PROGRAM REVIEWED*: Not Applicable *COPY OF PRESCRIPTION DRUG MONITORING REPORT IN PATIENT ANGELICA: Not Applicable Instructions: Kidney Stones, [id number] Referrals: Isha Zacarias ADMISSIONS ADVISOR [Primary Care Provider] - Forms: ED Department Discharge Additional Instructions: The following information is given to patients seen in the emergency department who are being discharged to home. This information is to outline your options for follow-up care. We provide all patients seen in our emergency department with a follow-up referral. The need for follow-up, as well as the timing and circumstances, are variable depending upon the specifics of your emergency department visit. If you don't have a primary care physician on staff, we will provide you with a referral. We always advise you to contact your personal physician following an emergency department visit to inform them of the circumstance of the visit and for follow-up with them and/or the need for any referrals to a consulting specialist. The emergency department will also refer you to a specialist when appropriate. This referral assures that you have the opportunity for follow-up care with a specialist. All of these measure are taken in an effort to provide you with optimal care, which includes your follow-up. Under all circumstances we always encourage you to contact your private physician who remains a resource for coordinating your care. When calling for follow-up care, please make the office aware that this follow-up is from your recent emergency room visit. If for any reason you are refused follow-up, please contact the [facility] Emergency Department at and asked to speak to the emergency department charge nurse. Please follow up with your primary care physician. If you do not have a primary care physician, see below: [facility] [address] [place] [id number] [facility] [address] [place] [id number] You were seen today for blood in your urine and lower abdominal pain. You are found to have a kidney stone. We will send you home with pain medication that you can take as needed. You can follow-up with urology as there is not 1 and will assist this time you may need to travel to my not. You have any increased fluid in your urine or pain please return to the ED. Sepsis Event Note (ED) - Focused Exam Vital Signs: Vital Signs Temp Pulse Resp BP Pulse Ox 01/10/21 01:51 97.2 F 108 H 18 148/101 H 97 - My Orders Last 24 Hours: My Active Orders 01/10/21 03:07 Communication Order [RC] STAT - Assessment/Plan Last 24 Hours: My Active Orders 01/10/21 03:07 Communication Order [RC] STAT Plan: Patient is a 40-year-old female presents today for lower audrey pain with increased sensation to urinate and blood in urine. Will obtain CT UA labs and reassess.
[2021-01-10 01:54] VITALS: BP 148/101; PULSE 108
[2021-01-10] MEDS ORDERED: Sodium Chloride 0.9% 1,000 ML IV ONE (02:15)
[2021-01-10 02:50] LABS: BLOOD UREA NITROGEN,BUN 27 mg/dL (7.0-18.0); CARBON DIOXIDE,CO2 23.8 mmol/L (21.0-32.0); CHLORIDE,CL 106 mmol/L (98-107); GLUCOSE RANDOM 106 mg/dL (74-106); LIPASE 213 U/L (73-393); POTASSIUM,K 3.4 mmol/L (3.5-5.1); SODIUM,NA 141 mmol/L (136-145)
[2021-01-10] MEDS ORDERED: Morphine 2 MG/ML SYRINGE IVPUSH ONE (03:49)
--- NOTE | 2021-01-10 03:54 | CT ---
INDICATION: Hematuria. Possible calculus. COMPARISON: CT of the abdomen and pelvis with contrast from yesterday at 0902 hours. TECHNIQUE: CT examination of the abdomen and pelvis was performed without contrast enhancement using 2.5 mm thick axial sections from the lung bases through the pubic symphysis. Oral contrast was not administered. Please note that all CT scans at this facility use dose modulation, iterative reconstruction, and/or weight-based dosing when appropriate to reduce radiation dose to as low as reasonably achievable. FINDINGS: There is new mild left hydronephrosis and left hydroureter extending to a new 2 millimeter calculus located at the UVJ. This calculus was previously in the posterior interpolar left kidney and there is no sign of any residual calculi in the left kidney. On the right, there is no sign of any renal or ureteral calculi. There is no sign of any right hydronephrosis or hydroureter. In the abdomen, the unenhanced liver, spleen, pancreas, and left adrenal are normal in appearance. Again seen is a tiny low-density nodule arising from the lateral limb of the right adrenal gland, most likely a small adenoma. The gallbladder is normal in appearance. The abdominal aorta is normal in caliber with no sign of dilatation. There is no sign of retroperitoneal mass or adenopathy. The stomach, loops of small bowel, and colon in the abdomen are normal in appearance. In the pelvis, the appendix is normal in appearance with no sign of inflammatory process. The loops of small bowel and colon in the pelvis are normal in appearance. The uterus and adnexal regions are normal in appearance. The urinary bladder is normal in appearance. There is no sign of pelvic or inguinal mass or adenopathy. There is no sign of free air or free fluid in the abdomen or pelvis. The lung bases are clear. The osseous structures are normal in appearance for the patient`s age. IMPRESSION: New mild left hydronephrosis and left hydroureter extending to a new 2 millimeter left UVJ calculus. This calculus was previously in the posterior interpolar left kidney. CT of the abdomen shows no additional renal or ureteral calculi on either side. Tiny low-density right adrenal nodule is probably an adrenal adenoma. CT of the pelvis shows no additional abnormality. Please note that all CT scans at this facility use dose modulation, iterative reconstruction, and/or weight-based dosing when appropriate to reduce radiation dose to as low as reasonably achievable. Dictated by Daniel Daigle MD @ 01/10/2021 3:53:[address] Daniel Daigle @ Jan 10 2021 3:53AM
== END 2021-01-10 04:35 | disposition home or self-care (01) ==
LOC: MW.ED 01:14
DX: N13.2 Hydronephrosis with renal and ureteral calculous obstruction (principal); Z79.899 Other long term (current) drug therapy
CPT/HCPCS: 74176; 80053; 81001; 81025; 83690; 85025; 96374; 96375; 99284; J1885; J2270; J7030; 99283

== ENCOUNTER 2023-12-05 08:16 | Emergency (ER) | payer BC, OTHER ==
[2023-12-05] MEDS: Diphtheria,Pertussis(Acell),Tetanus Vaccine 0.5 ML Syringe IM ONE (08:58)
[2023-12-05 09:08] VITALS: BP 145/82; PULSE 93
== END 2023-12-05 09:06 | disposition home or self-care (01) ==
LOC: MW.ED 08:16
DX: S81.852A Open bite, left lower leg, initial encounter (principal); S81.851A Open bite, right lower leg, initial encounter; Z23 Encounter for immunization; W54.0XXA Bitten by dog, initial encounter
CPT/HCPCS: 90471; 90715; 99283-25